=== PATIENT | male | born 1985 | race Caucasian/White ===

== ENCOUNTER 2019-10-08 14:38 | Emergency (ER) | payer BC, SELFPAY ==
[2019-10-08 14:44] VITALS: BP 123/84; PULSE 72; RESP 18; O2SAT 97; BMI 24.3
--- NOTE | 2019-10-08 15:55 | PC.NURSE ---
Patient states he began half pain in his left calf today, called nurse, and was instructed to come to ED to have ultrasound done to assess for clot in leg. Had traveled [address] trip yesterday prior to pain.
--- NOTE | 2019-10-08 16:07 | USCV_ITS ---
Geovanny Cochran Age: 34 Gender: M : 1985 Exam Date: 10/08/2019 16:20 Ordering Phys: Mendez Oakes Technologist: Maria Ines Santana Exam Location: [facility] – [place]_ Indication: PAIN IN CALF HISTORY: Lower extremity pain. Post left leg surgery. PROCEDURES: Examined were the left greater saphenous, common femoral, superficial femoral, profunda, popliteal, posterior tibial veins, and peroneal trunk.. FINDINGS: DVT noted in the LEFT soleal vein and in the LEFT peroneal veins at the calf. All other veins appear free of thrombus at this time. CONCLUSIONS DVT noted in the LEFT soleal vein and in the LEFT peroneal veins at the calf. Remaining veins LLE are patent. Pk Landry MD (Electronically Signed) Final Date: 08 October 2019 17:06 S
--- NOTE | 2019-10-08 16:08 | ED_ITS ---
Documented by User: WILBERTO Jimenez 10/10/19 11:30 HPI - Extremity Problem General: Chief complaint: Extremity Problem,Nontraumatic Stated complaint: left knee pain Time Seen by Provider: 10/08/19 16:04 History of Present Illness: HPI Narrative: Patient is a 34-year-old male comes in the ED with left calf pain. Patient had knee surgery 2 weeks ago. He states that this morning when he woke up he had left calf pain and it didn't go away all day. He denies any trouble breathing or coughing up blood. No history of blood clots. Associated symptoms: Deny chest pain, fever(s) or rash Review of Systems Const: Denies: fever, chills or fatigue Eyes: Denies: change in vision or eye discomfort ENMT: Denies: throat pain, painful swallowing, nasal discharge or nasal congestion Card: Denies: chest pain, palpitations, edema, swelling of feet/ankles, shortness of breath on exertion or shortness of breath when lying down Resp: Denies: shortness of breath, productive cough or non-productive cough GI: Denies: abdominal pain, nausea, vomiting, diarrhea, constipation or blood in stool : Denies: flank pain, difficulty urinating, painful urination or blood in urine Musc: Reports: extremity pain (left calf); Denies: neck pain, back pain or extremity swelling Skin/Breast: Denies: rash or new lesion Neuro: Denies: headache, numbness in extremities or weakness in extremities PFSH ED PFSH: Social History Smoking and tobacco status: never smoked Physical Exam Narrative: EXAM NARRATIVE: pt showing no signs of acute pain or respiratory distress. Const: COMMON NORMALS: oriented x3 HENMT: COMMON NORMALS: normocephalic HEAD & SCALP: normocephalic MOUTH: oral and palatal mucosa normal THROAT: posterior oropharynx normal and uvula midline Neck/C-Spine: COMMON NORMALS: supple GENERAL: Yes normal visual inspection Resp: COMMON NORMALS: normal respiratory effort, no retractions, no use of accessory muscles and clear to auscultation bilaterally AUSCULTATION: clear to auscultation bilaterally Cardio: COMMON NORMALS: regular rate, regular rhythm, S1 normal heart sound, S2 normal heart sound, no gallops, no clicks, no murmurs and peripheral pulses 2+ throughout RATE: regular rate RHYTHM: regular rhythm HEART SOUNDS: S1 normal and S2 normal PERIPHERAL PULSES: pulses 2+ throughout GI: COMMON NORMALS: normal to inspection, nondistended, normoactive bowel sounds, soft to palpation, non-tender and no masses PALPATION: Yes soft : COMMON NORMALS: Yes no CVA tenderness BLADDER/KIDNEY EXAM: Yes no CVA tenderness Back/Pelvis: COMMON NORMALS: no CVA tenderness Extremity: LEFT LOWER EXTREMITY: Yes lower leg (left calf tenderness-no swelling or edemea) Left lower leg: Yes neurovascular exam (intact) Neuro: COMMON NORMALS: oriented x3 and moves all extremities Course Vital Signs: Vital signs: Vital Signs Pulse Rate 58 L 10/08/19 17:21 Respiratory Rate 18 10/08/19 17:21 Blood Pressure 122/67 10/08/19 17:21 Pulse Oximetry 95 10/08/19 17:21 MDM - Extremity (Nontraumatic) MDM Narrative: Medical decision making narrative: pt is a 34 y/o male who comes to the ED with left calf pain 2 weeks after left knee surgery. US Venous duplex of Left LE showed DVT in Soleal and Peroneal vein. Pt was given a shot of heparin in the ED and sent home on a prescription for eliquis. pt was told to follow up with PCP within 5 days to discuss further medication management and treatment length. Pt understood and agreed with plan. Imaging Data^: US Vascular: Attestation: I personally reviewed and interpreted this imaging study as follows: Radiologist's impression: Preliminary report showed a DVT in the left soleal vein in in the left peroneal vein of the calf. Discharge Plan Discharge Patient Disposition: Home, Self-Care Clinical Impression: Deep vein thrombosis of lower extremity Qualifiers: Affected thrombotic vein of extremity: peroneal Chronicity: acute Laterality: left Qualified Code(s): I82.452 - Acute embolism and thrombosis of left peroneal vein Condition: Stable Prescriptions: New Eliquis 5 mg tablet 5 mg PO BID Qty: 20 RF: 0 Discharge Orders: Discharge Order (Routine); Ordered 10/08/19 Ordered By: Mendez Oakes Referrals: Josie Cunningham DO [Primary Care Provider] - Discharge Diet: Regular Discharge Activity: Resume usual activity Patient Instructions: Deep Venous Thrombosis (ED) Activity Restrictions/Additional Instructions: Follow-up with PCP within 5 days for reevaluation and to discuss anticoagulation treatment plan. Take eliquis twice a day. 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 Comprehensive Documented by User: Jessa Pabon MD, [facility] [place] 10/14/19 23:51 HPI - Extremity Problem General: Chief complaint: Extremity Problem,Nontraumatic Stated complaint: left knee pain Time Seen by Provider: 10/08/19 16:04 PFSH ED PFSH: Social History Smoking and tobacco status: never smoked Course Vital Signs: Vital signs: Vital Signs Pulse Rate 58 L 10/08/19 17:21 Respiratory Rate 18 10/08/19 17:21 Blood Pressure 122/67 10/08/19 17:21 Pulse Oximetry 95 10/08/19 17:21 MDM - Extremity (Nontraumatic) MDM Narrative: Medical decision making narrative: Patient with a new onset of DVT. He had initially been sent home on Eliquis 5 mg twice daily. However I contacted the patient following discharge to tell him that he needed to take 10 mg twice a day for 7 days then switch to 5 mg daily. He voiced understanding and is in agreement with the plan. He is advised to return for any concerns. Discharge Plan Discharge Patient Disposition: Home, Self-Care Clinical Impression: Deep vein thrombosis of lower extremity Qualifiers: Affected thrombotic vein of extremity: peroneal Chronicity: acute Laterality: left Qualified Code(s): I82.452 - Acute embolism and thrombosis of left peroneal vein Condition: Stable Prescriptions: New Eliquis 5 mg tablet 5 mg PO BID Qty: 20 RF: 0 Discharge Orders: Discharge Order (Routine); Ordered 10/08/19 Ordered By: Mendez Oakes Referrals: Marisa,Josie L, DO [Primary Care Provider] - Discharge Diet: Regular Discharge Activity: Resume usual activity Patient Instructions: Deep Venous Thrombosis (ED) Activity Restrictions/Additional Instructions: Follow-up with PCP within 5 days for reevaluation and to discuss anticoagulation treatment plan. Take eliquis twice a day. 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
[2019-10-08] MEDS: enoxaparin 80 mg/0.8 mL Syringe SUBCUT (17:17)
[2019-10-08 17:21] VITALS: BP 122/67; PULSE 58; RESP 18; O2SAT 95
== END 2019-10-08 17:21 | disposition home or self-care (01) ==
PROVIDERS: Emergency Provider Physician Assistant; Family Provider Family Medicine; PCP Family Medicine
DX: I82.4Z2 Acute embolism and thrombosis of unspecified deep veins of left distal lower extremity (principal)
CPT/HCPCS: 93971; 96372; 99281; 99283; J1650

== ENCOUNTER 2019-12-30 18:50 | Emergency (ER) | payer OTHER, BC, SELFPAY ==
--- NOTE | 2019-12-30 18:53 | CTR_ITS ---
PROCEDURE INFORMATION: Exam: CT Head Without Contrast Exam date and time: 12/30/2019 6:55 PM Age: 34 years old Clinical indication: Speech disturbance and weakness, extremity and other: Shaking; Left; Additional info: AMS TECHNIQUE: Imaging protocol: Computed tomography of the head without contrast. Radiation optimization: All CT scans at this facility use at least one of these dose optimization techniques: automated exposure control; mA and/or kV adjustment per patient size (includes targeted exams where dose is matched to clinical indication); or iterative reconstruction. Other technique: STROKE PROTOCOL was implemented. COMPARISON: No relevant prior studies available. RADIATION DOSE METRICS: Total DLP: 651.18 mGy-cm FINDINGS: Brain: There is no evidence of infarct, vega-white matter differentiation is preserved. There is no hemorrhage or extra-axial collection. There is no mass. Ventricles: There is no hydrocephalus. Bones/joints: Unremarkable. No acute fracture. Sinuses: There is a small sphenoid sinus retention cyst. No air-fluid levels. Mastoid air cells: Visualized mastoid air cells are well aerated. Soft tissues: Unremarkable. CT/CT head wo con* [id number] IMPRESSION: No intracranial lesion or injury. ASSESSMENT: ASPECTS ([place] Stroke Program Early CT Score) is 10. Radiation Dose CTDIVOL = (mGy): DLP = 651.18 (mGy-cm)
--- NOTE | 2019-12-30 18:53 | XR_ITS ---
WS: [id number] PORTABLE CHEST HISTORY: ams COMPARISON: 03/08/2018 Lungs are clear and well expanded. No pleural effusion or pneumothorax. Cardiac size: Normal. Mediastinum/Aorta: Normal mediastinum. No osseous abnormality seen. XR/XR chest 1V portable [id number] IMPRESSION: Unremarkable portable chest.
--- NOTE | 2019-12-30 18:53 | CTR_ITS ---
PROCEDURE INFORMATION: Exam: CT Angiography Head With Contrast Exam date and time: 12/30/2019 7:00 PM Age: 34 years old Clinical indication: Speech disturbance and weakness and other: Shaking; Additional info: AMS TECHNIQUE: Imaging protocol: Computed tomography angiography of the head with intravenous contrast. 3D rendering: MIP and/or 3D reconstructed images were created by the technologist. Radiation optimization: All CT scans at this facility use at least one of these dose optimization techniques: automated exposure control; mA and/or kV adjustment per patient size (includes targeted exams where dose is matched to clinical indication); or iterative reconstruction. Contrast material: OMNI 350; Contrast volume: 95 ml; Contrast route: IV; COMPARISON: CT head wo con* [id number] 12/30/2019 6:52 PM RADIATION DOSE METRICS: Total DLP: 2081.05 mGy-cm FINDINGS: Anterior cerebral arteries: No occlusion or significant stenosis. No aneurysm. Right internal carotid artery: Intracranial segment is patent with no significant stenosis or occlusion. No aneurysm. Right middle cerebral artery: No occlusion or significant stenosis. No aneurysm. Right posterior cerebral artery: No occlusion or significant stenosis. No aneurysm. Right vertebral artery: No occlusion or significant stenosis. No aneurysm. Left internal carotid artery: Intracranial segment is patent with no significant stenosis or occlusion. No aneurysm. Left middle cerebral artery: No occlusion or significant stenosis. No aneurysm. Left posterior cerebral artery: No occlusion or significant stenosis. No aneurysm. Left vertebral artery: No occlusion or significant stenosis. No aneurysm. Basilar artery: No occlusion or significant stenosis. No aneurysm. IMPRESSION: No intracranial stenosis or occlusion. PROCEDURE INFORMATION: Exam: CT Angiography Neck With Contrast Exam date and time: 12/30/2019 7:00 PM Age: 34 years old Clinical indication: Speech disturbance and weakness and other: Shaking; Additional info: AMS TECHNIQUE: Imaging protocol: Computed tomography angiography of the neck with intravenous contrast. 3D rendering: MIP and/or 3D reconstructed images were created by the technologist. Radiation optimization: All CT scans at this facility use at least one of these dose optimization techniques: automated exposure control; mA and/or kV adjustment per patient size (includes targeted exams where dose is matched to clinical indication); or iterative reconstruction. Contrast material: OMNI 350; Contrast volume: 95 ml; Contrast route: IV; COMPARISON: CT head wo con* [id number] 12/30/2019 6:52 PM RADIATION DOSE METRICS: Total DLP: 1.05 mGy-cm FINDINGS: Right common carotid artery: No stenosis. No dissection or occlusion. Right internal carotid artery: No stenosis of the extracranial segment. No dissection or occlusion. Right external carotid artery: No occlusion or stenosis of the origin. Right vertebral artery: No stenosis. No dissection or occlusion. Left common carotid artery: No stenosis. No dissection or occlusion. Left internal carotid artery: No stenosis of the extracranial segment. No dissection or occlusion. Left external carotid artery: No occlusion or stenosis of the origin. Left vertebral artery: No stenosis. No dissection or occlusion. Thyroid: There is a 6 mm right lobe thyroid nodule. No further imaging required. Bones/joints: No acute fracture. Soft tissues: Normal. No significant soft tissue swelling. CT/CT angio headneck* [id number] IMPRESSION: No carotid or vertebral artery stenosis or dissection. COMMENTS: Consistent with the [employer]'s Incidental Findings Committee white paper (J Am Tenzin Radiol 2015): In patients aged 35 years and older with an incidental thyroid nodule equal to or greater than 1.[address], MRI or extrathyroidal US, further evaluation with dedicated thyroid US is recommended for patients with normal life expectancy and without comorbidities. For smaller nodules without suspicious features, no further evaluation or follow up is recommended. REFERENCES: NASCET CRITERIA. The degree of internal carotid artery stenosis is based on NASCET criteria. Normal is no stenosis. Mild is less than 50% stenosis. Moderate is 50-69% stenosis. Severe is 70% to 99% stenosis. Total occlusion is no detectable patent lumen. Radiation Dose CTDIVOL = (mGy): DLP = 1.05~1.05 (mGy-cm)
[2019-12-30] MEDS: iohexol 350 mg/mL 100 mL Btl IV (19:04)
[2019-12-30 19:24] LABS: Basophils % 0.3 %; Eosinophils % 0.3 %; Hematocrit 39.3 % (42.0-52.0); Hemoglobin 13.2 g/dL (11.7-16.6); Lymphocytes # 1.4 10^3/uL (0.8-4.8); Lymphocytes % 20.1 %; Mean Corpuscular HGB Conc 33.6 g/dL (30.0-36.0); Mean Corpuscular Hemoglobin 30.6 pg (28.0-34.0); Mean Corpuscular Volume 91.2 fL (80-94); Mean Platelet Volume 12.2 fL (7.4-10.4); Monocytes # 0.6 10^3/uL (0.2-0.9); Nucleated Red Blood Cells % 0 %; Platelet Count 145 10^3/cmm (130-400); Red Blood Count 4.31 10^6/uL (4.1-5.3); Red Cell Distribution Width 11.9 % (12.1-15.1); White Blood Count 7.1 10^3/uL (4.0-10.0)
[2019-12-30 19:36] LABS: INR 1.17 (0.8-1.2)
[2019-12-30 19:44] LABS: Alanine Aminotransferase 17 U/L (0-41); Albumin Level 4.3 g/dL (3.5-5.2); Alkaline Phosphatase 54 IU/L (40-130); Anion Gap 15.9 (5-19); Aspartate Amino Transferase 19 U/L (0-40); Blood Urea Nitrogen 29 mg/dL (6-20); Calcium 8.5 mg/dL (8.5-10.5); Carbon Dioxide 24 mmol/L (22-29); Chloride 94 mmol/L (98-107); Globulin 1.4 g/dL (1.3-4.6); Glomerular Filtration Rate 57.3 mL/min (90-130); Glucose 139 mg/dL (65-115); Osmolality Calculated 269 mOsm/kg (285-295); Potassium 3.9 mmol/L (3.5-5.1); Sodium 130 mmol/L (136-145); Total Bilirubin 0.2 mg/dL (0.15-1.2); Total Protein 5.7 g/dL (6.6-8.7)
[2019-12-30 19:45] LABS: Acetaminophen < 5.0 ug/mL (10-30); Alcohol Level < 10 mg/dL (0-10); Salicylate < 0.3 mg/dL (3-10)
--- NOTE | 2019-12-30 19:45 | W.ED.AMS ---
HPI - Altered Mental Status General: Stated Complaint: poss stroke Time Seen by Provider: 12/30/19 18:53 History of Present Illness: HPI narrative: Mr. Cochran is a pleasant 34-year-old male who comes in as a stroke alert as his family found him to have difficulty speaking and was confused. As time has elapsed the patient has arrived here gone to CT and is now talking some. Nursing and cardiovascular radiologic technologist tell us that his mental status is improved even during their time with him. Mr. Cochran explains to me that he took a piece of candy from his boss at work who told him it would make him feel very good. Patient thinks he took this sometime between 430 and 445. He admits now that probably 30 minutes after taking this he began to feel odd and is somewhat confused about to events until just recently. Review of Systems General: Reports: other (negative unless marked) Const: Denies: fever, chills, body aches, fatigue, malaise or diaphoresis Eyes: Denies: change in vision or blurry vision ENMT: Denies: throat pain, painful swallowing, hoarseness, ear pain, ear discharge, Change in hearing or nasal discharge Card: Denies: chest pain, palpitations, irregular heart rhythm, syncope, pre-syncope, shortness of breath on exertion or shortness of breath when lying down Resp: Denies: shortness of breath, productive cough, non-productive cough, wheezing, coughing up blood or chest congestion GI: Denies: abdominal pain, nausea, vomiting, vomiting blood, coffee grounds in vomit, diarrhea, constipation, cramping, blood in stool or black tarry stool : Denies: flank pain, difficulty urinating, painful urination, urinary frequency, urinary urgency, decreased urine ouput, urinary incontinence or blood in urine Musc: Denies: neck pain, back pain, extremity pain, extremity swelling, joint pain, joint swelling, joint warmth or joint stiffness Skin/Breast: Denies: rash, skin tenderness or yellow skin Neuro: Reports: confusion; Denies: headache, numbness in extremities, weakness in extremities, changes in sensation, lack of coordination, difficulty walking, dizziness or vertigo Endo: Denies: excessive thirst, tired all the time, cold intolerance, excessive sweating, flushing or hot flashes Kendall/Lymph: Denies: easy bruising, easy bleeding, petechiae or enlarged lymph nodes All/Imm: Denies: hives, throat swelling, tongue swelling, facial swelling or acute wheezing PFSH ED PFSH: Medical History (Updated 12/30/19 @ 22:06 by Juliet Lentz) DVT (deep venous thrombosis) Social History Smoking and tobacco status: never smoked Physical Exam Const: COMMON NORMALS: no apparent distress, oriented x3, no limitations, healthy appearing and well nourished EXAM LIMITATIONS: no altered mental status GENERAL APPEARANCE: cooperative, well kempt and well developed ORIENTATION/CONSCIOUSNESS: Yes awake HENMT: COMMON NORMALS: normocephalic, head/scalp atraumatic, hearing grossly normal bilaterally, external ears normal, EAC's normal, external nose normal and moist oral mucous membranes HEAD & SCALP: normal to inspection, normocephalic and atraumatic FACE & SINUS: normal facial exam and face symmetric NOSE: external nose normal and nares normal EXTERNAL EAR: Yes external ears normal EXTERNAL AUDITORY CANAL: EAC's normal MOUTH: oral and palatal mucosa normal and tongue normal Eye: COMMON NORMALS: PERRL, EOMs intact bilaterally, conjunctivae normal and no scleral icterus GENERAL EYE: normal appearance of both eyes and normal light reflex CONJUNCTIVA: Yes conjunctivae normal SCLERA: sclerae normal CORNEA: Yes corneas normal PUPIL: Yes PERRL DIRECT OPHTHALMOSCOPY: Yes normal light reflex Neck/C-Spine: COMMON NORMALS: full ROM, no lymphadenopathy, supple, no meningeal signs and no JVD GENERAL: Yes normal visual inspection and Yes trachea midline CERVICAL SPINE: Yes cervical ROM normal Chest: COMMONS NORMALS: inspection of chest normal and palpation of chest normal Resp: COMMON NORMALS: normal respiratory effort, no retractions, no use of accessory muscles and clear to auscultation bilaterally EFFORT & INSPECTION: Yes able to speak in complete sentences AUSCULTATION: clear to auscultation bilaterally Cardio: COMMON NORMALS: no JVD, regular rate, regular rhythm, S1 normal heart sound, S2 normal heart sound, no gallops, no clicks, no murmurs and no rub JUGULAR VENOUS DISTENTION: no JVD RATE: regular rate RHYTHM: regular rhythm HEART SOUNDS: S1 normal and S2 normal GI: COMMON NORMALS: soft to palpation, non-tender, no hepatosplenomegaly and no masses INSPECTION: Yes normal to inspection PALPATION: Yes soft and Yes no hepatosplenomegaly : COMMON NORMALS: Yes no CVA tenderness BLADDER/KIDNEY EXAM: Yes no CVA tenderness Back/Pelvis: COMMON NORMALS: no CVA tenderness, thoracic and lumbar spine normal to inspection, no thoracic nor lumbar tenderness and thoraco-lumbar ROM normal Extremity: COMMON NORMALS: normal to inspection, full ROM, normal capillary refill, no joint enlargement, no clubbing, cyanosis or edema and no calf tenderness Neuro: COMMON NORMALS: oriented x3, CN's II-XII intact bilaterally, moves all extremities, no focal motor deficits and no sensory deficits noted MENINGEAL SIGNS: Yes no meningeal signs Psych: APPEARANCE: Yes well kempt Skin: COMMON NORMALS: no rashes or lesions noted, skin turgor normal, no jaundice, no petechiae and no mottling GENERAL SKIN EXAM: no rashes or lesions noted and turgor normal Course ED course: 1999 -the patient feels like he is back to normal. He shows no sign of difficulty speaking, no abnormal neurologic function and no sign of toxidrome. His CTs and lab work are unremarkable. I have discussed with him I like to watch him for a while longer just to be certain there is nothing else that may have been in this medication that he ingested. Patient has been able to ambulate to and from the bathroom without any difficulty. MDM - Altered Mental Status MDM Narrative: Medical decision making narrative: 2203 - Mr. Cochran is a nice 34-year-old male who comes in after he take a piece of candy from his boss or 1 of his coworkers. He states he began to fade out from there and then had trouble speaking and was tremulous. Here his symptoms have completely resolved but he seems to be caught up and trying to figure out what he may have taken. I reviewed the case with poison control who states that the patient is back to normal and has stable vital signs he can be discharged. I will watch the patient a total of 4 hours here in the ER but this should be according to him well over 6 hours since time of ingestion. I believe he is safe at this time and he wants to go home. I will reexamine him at that 4-hour cooper and if his symptoms of not changed and he is feeling good I will discharge him home with his . 2249 -the patient is able to ambulate without any difficulty. He is not confused, his vital signs are stable he shows no sign of any toxidrome. He would like to go home and I have discussed what to look out for with his . I did review the case with poison control and they had no formal recommendations but felt the patient could be discharged if his vital signs are stable and he was back to baseline. He and his do agree to return should her symptoms change or worsen but this time he is feeling good and would like to go home. Lab Data: Attestation: I reviewed the patient's lab results. Labs: Lab Results 12/30/19 12/30/19 12/30/19 Range/Units 19:13 19:13 19:13 WBC 7.1 (4.0-10.0) 10^3/ uL RBC 4.31 (4.1-5.3) 10^6/u L Hgb 13.2 (11.7-16.6) g/dL Hct 39.3 L (42.0-52.0) % MCV 91.2 (80-94) fL MCH 30.6 (28.0-34.0) pg MCHC 33.6 (30.0-36.0) g/dL RDW 11.9 L (12.1-15.1) % Plt Count 145 (130-400) 10^3/c mm MPV 12.2 H (7.4-10.4) fL Neut % (Auto) 71.0 % Lymph % (Auto) 20.1 % Erath % (Auto) 8.0 % Eos % (Auto) 0.3 % Baso % (Auto) 0.3 % Neut # (Auto) 5.0 (1.8-7.7) 10^3/u L Lymph # (Auto) 1.4 (0.8-4.8) 10^3/u L Erath # (Auto) 0.6 (0.2-0.9) 10^3/u L Eos # (Auto) 0.0 (0.0-0.8) 10^3/u L Baso # (Auto) 0.0 (0.0-0.1) 10^3/u L Nucleated RBC % (a uto) 0 % Nucleated RBCs # 0.0 /100WBC PT 15.20 H (10.5-13.3) SECO NDS INR 1.17 (0.8-1.2) Sodium 130 L (136-145) mmol/L Potassium 3.9 (3.5-5.1) mmol/L Chloride 94 L (98-107) mmol/L Carbon Dioxide 24 (22-29) mmol/L Anion Gap 15.9 (5-19) BUN 29 H (6-20) mg/dL Creatinine 1.4 H (0.7-1.2) mg/dL GFR Calculation 57.3 L (90-130) mL/min Glucose 139 H (65-115) mg/dL Calculated Osmolal ity 269 L (285-295) mOsm/k g Calcium 8.5 (8.5-10.5) mg/dL Total Bilirubin 0.2 (0.15-1.2) mg/dL AST 19 (0-40) U/L ALT 17 (0-41) U/L Alkaline Phosphata se 54 (40-130) IU/L Total Protein 5.7 L (6.6-8.7) g/dL Albumin 4.3 (3.5-5.2) g/dL Globulin 1.4 (1.3-4.6) g/dL Salicylates < 0.3 L (3-10) mg/dL Urine Opiates Scre en (Negative) ng/mL Acetaminophen < 5.0 L (10-30) ug/mL Ur Barbiturates Sc reen (Negative) ng/mL Ur Phencyclidine S crn (Negative) ng/mL Ur Amphetamines Sc reen (Negative) ng/mL U Benzodiazepines Scrn (Negative) ng/mL Urine Cocaine Scre en (Negative) ng/mL U Marijuana (THC) Screen (Negative) ng/mL Ethyl Alcohol < 10 (0-10) mg/dL 12/30/19 Range/Units 19:32 WBC (4.0-10.0) 10^3/ uL RBC (4.1-5.3) 10^6/u L Hgb (11.7-16.6) g/dL Hct (42.0-52.0) % MCV (80-94) fL MCH (28.0-34.0) pg MCHC (30.0-36.0) g/dL RDW (12.1-15.1) % Plt Count (130-400) 10^3/c mm MPV (7.4-10.4) fL Neut % (Auto) % Lymph % (Auto) % Erath % (Auto) % Eos % (Auto) % Baso % (Auto) % Neut # (Auto) (1.8-7.7) 10^3/u L Lymph # (Auto) (0.8-4.8) 10^3/u L Erath # (Auto) (0.2-0.9) 10^3/u L Eos # (Auto) (0.0-0.8) 10^3/u L Baso # (Auto) (0.0-0.1) 10^3/u L Nucleated RBC % (a uto) % Nucleated RBCs # /100WBC PT (10.5-13.3) SECO NDS INR (0.8-1.2) Sodium (136-145) mmol/L Potassium (3.5-5.1) mmol/L Chloride (98-107) mmol/L Carbon Dioxide (22-29) mmol/L Anion Gap (5-19) BUN (6-20) mg/dL Creatinine (0.7-1.2) mg/dL GFR Calculation (90-130) mL/min Glucose (65-115) mg/dL Calculated Osmolal ity (285-295) mOsm/k g Calcium (8.5-10.5) mg/dL Total Bilirubin (0.15-1.2) mg/dL AST (0-40) U/L ALT (0-41) U/L Alkaline Phosphata se (40-130) IU/L Total Protein (6.6-8.7) g/dL Albumin (3.5-5.2) g/dL Globulin (1.3-4.6) g/dL Salicylates (3-10) mg/dL Urine Opiates Scre en Negative (Negative) ng/mL Acetaminophen (10-30) ug/mL Ur Barbiturates Sc reen Negative (Negative) ng/mL Ur Phencyclidine S crn Negative (Negative) ng/mL Ur Amphetamines Sc reen Negative (Negative) ng/mL U Benzodiazepines Scrn Negative (Negative) ng/mL Urine Cocaine Scre en Negative (Negative) ng/mL U Marijuana (THC) Screen Positive H (Negative) ng/mL Ethyl Alcohol (0-10) mg/dL Imaging Data^: CT Head: Radiologist's impression: [address] [address] [address] Scan Report Signed Patient: Geovanny Cochran Unit #: [id number] : 1985 Age/Sex: 34 / M ADM Date: 12/30/19 Loc: ER Room/Bed: Attending Dr: Ordering Provider/Ordering MD: Christin Pink MD Date of Service: 12/30/19 Procedure(s): CT head wo con* [id number] Accession Number(s): [id number] Report Number: [id number] PROCEDURE INFORMATION: Exam: CT Head Without Contrast Exam date and time: 12/30/2019 6:55 PM Age: 34 years old Clinical indication: Speech disturbance and weakness, extremity and other: Shaking; Left; Additional info: AMS TECHNIQUE: Imaging protocol: Computed tomography of the head without contrast. Radiation optimization: All CT scans at this facility use at least one of these dose optimization techniques: automated exposure control; mA and/or kV adjustment per patient size (includes targeted exams where dose is matched to clinical indication); or iterative reconstruction. Other technique: STROKE PROTOCOL was implemented. COMPARISON: No relevant prior studies available. RADIATION DOSE METRICS: Total DLP: 651.18 mGy-cm FINDINGS: Brain: There is no evidence of infarct, vega-white matter differentiation is preserved. There is no hemorrhage or extra-axial collection. There is no mass. Ventricles: There is no hydrocephalus. Bones/joints: Unremarkable. No acute fracture. Sinuses: There is a small sphenoid sinus retention cyst. No air-fluid levels. Mastoid air cells: Visualized mastoid air cells are well aerated. Soft tissues: Unremarkable. CT/CT head wo con* [id number] IMPRESSION: No intracranial lesion or injury. ASSESSMENT: ASPECTS ([place] Stroke Program Early CT Score) is 10. Radiation Dose CTDIVOL = (mGy): DLP = 651.18 (mGy-cm) Dictated By: Dex Calhoun MD Signed By: Dex Calhoun MD Signed Date/Time: 12/30/191913 DD/ 12 CTA Head and Neck: Radiologist's impression: [facility] [address] [place] [address] CT Scan Report Signed Patient: Geovanny Cochran Unit #: [id number] : 1985 Age/Sex: 34 / M ADM Date: 12/30/19 Loc: ER Room/Bed: Attending Dr: Ordering Provider/Ordering MD: Christin Pink MD Date of Service: 12/30/19 Procedure(s): CT angio headneck* [id number] Accession Number(s): [id number] Report Number: [id number] PROCEDURE INFORMATION: Exam: CT Angiography Head With Contrast Exam date and time: 12/30/2019 7:00 PM Age: 34 years old Clinical indication: Speech disturbance and weakness and other: Shaking; Additional info: AMS TECHNIQUE: Imaging protocol: Computed tomography angiography of the head with intravenous contrast. 3D rendering: MIP and/or 3D reconstructed images were created by the technologist. Radiation optimization: All CT scans at this facility use at least one of these dose optimization techniques: automated exposure control; mA and/or kV adjustment per patient size (includes targeted exams where dose is matched to clinical indication); or iterative reconstruction. Contrast material: OMNI 350; Contrast volume: 95 ml; Contrast route: IV; COMPARISON: CT head wo con* [id number] 12/30/2019 6:52 PM RADIATION DOSE METRICS: Total DLP: 2081.05 mGy-cm FINDINGS: Anterior cerebral arteries: No occlusion or significant stenosis. No aneurysm. Right internal carotid artery: Intracranial segment is patent with no significant stenosis or occlusion. No aneurysm. Right middle cerebral artery: No occlusion or significant stenosis. No aneurysm. Right posterior cerebral artery: No occlusion or significant stenosis. No aneurysm. Right vertebral artery: No occlusion or significant stenosis. No aneurysm. Left internal carotid artery: Intracranial segment is patent with no significant stenosis or occlusion. No aneurysm. Left middle cerebral artery: No occlusion or significant stenosis. No aneurysm. Left posterior cerebral artery: No occlusion or significant stenosis. No aneurysm. Left vertebral artery: No occlusion or significant stenosis. No aneurysm. Basilar artery: No occlusion or significant stenosis. No aneurysm. IMPRESSION: No intracranial stenosis or occlusion. PROCEDURE INFORMATION: Exam: CT Angiography Neck With Contrast Exam date and time: 12/30/2019 7:00 PM Age: 34 years old Clinical indication: Speech disturbance and weakness and other: Shaking; Additional info: AMS TECHNIQUE: Imaging protocol: Computed tomography angiography of the neck with intravenous contrast. 3D rendering: MIP and/or 3D reconstructed images were created by the technologist. Radiation optimization: All CT scans at this facility use at least one of these dose optimization techniques: automated exposure control; mA and/or kV adjustment per patient size (includes targeted exams where dose is matched to clinical indication); or iterative reconstruction. Contrast material: OMNI 350; Contrast volume: 95 ml; Contrast route: IV; COMPARISON: CT head wo con* [id number] 12/30/2019 6:52 PM RADIATION DOSE METRICS: Total DLP: 2081.05 mGy-cm FINDINGS: Right common carotid artery: No stenosis. No dissection or occlusion. Right internal carotid artery: No stenosis of the extracranial segment. No dissection or occlusion. Right external carotid artery: No occlusion or stenosis of the origin. Right vertebral artery: No stenosis. No dissection or occlusion. Left common carotid artery: No stenosis. No dissection or occlusion. Left internal carotid artery: No stenosis of the extracranial segment. No dissection or occlusion. Left external carotid artery: No occlusion or stenosis of the origin. Left vertebral artery: No stenosis. No dissection or occlusion. Thyroid: There is a 6 mm right lobe thyroid nodule. No further imaging required. Bones/joints: No acute fracture. Soft tissues: Normal. No significant soft tissue swelling. CT/CT angio headneck* [id number] IMPRESSION: No carotid or vertebral artery stenosis or dissection. COMMENTS: Consistent with the [place] [employer]'s Incidental Findings Committee white paper (J Am Tenzin Radiol 2015): In patients aged 35 years and older with an incidental thyroid nodule equal to or greater than 1.[address], MRI or extrathyroidal US, further evaluation with dedicated thyroid US is recommended for patients with normal life expectancy and without comorbidities. For smaller nodules without suspicious features, no further evaluation or follow up is recommended. REFERENCES: NASCET CRITERIA. The degree of internal carotid artery stenosis is based on NASCET criteria. Normal is no stenosis. Mild is less than 50% stenosis. Moderate is 50-69% stenosis. Severe is 70% to 99% stenosis. Total occlusion is no detectable patent lumen. Radiation Dose CTDIVOL = (mGy): DLP = 2081.05 1.05 (mGy-cm) Dictated By: Dex Calhoun MD Signed By: Dex Calhoun MD Signed Date/Time: 12/30/191921 DD/ 20 Discharge Plan Discharge Patient Disposition: Home, Self-Care Clinical Impression: Adverse reaction to drug Qualifiers: Encounter type: initial encounter Qualified Code(s): T50.905A - Adverse effect of unspecified drugs, medicaments and biological substances, initial encounter Condition: Stable Prescriptions: No Action Eliquis 5 mg tablet 5 mg PO BID Qty: 20 RF: 0 Discharge Orders: Discharge Order (Routine); Ordered 12/30/19 Ordered By: Juliet Lentz Referrals: Josie Cunningham DO [Primary Care Provider] - 1-3 days Discharge Diet: Advance as tolerated Discharge Activity: Increase activity as tolerated Patient Instructions: Adverse Drug Reaction (ED) Activity Restrictions/Additional Instructions: Please return to the ER immediately for any of the signs or symptoms listed on your discharge instruction sheets, worsening/changing of your symptoms, you are not getting better as quickly as expected, or for ANY other cause or concerns. Return to the ER if you develop any additional symptoms such as headache, confusion, fever, vomiting, change in your mental status, or for any other cause for concern. 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
[2019-12-30 20:06] LABS: Amphetamines Screen Urine Negative (Negative); Barbiturates Screen Urine Negative (Negative); Benzodiazepines Screen Urine Negative (Negative); Cocaine Screen Urine Negative (Negative); Opiate Screen Urine Negative (Negative); PCP Screen Urine Negative (Negative); THC Screen Urine Positive (Negative)
[2019-12-30 23:50] VITALS: BP 106/69; PULSE 96; RESP 16; O2SAT 98
== END 2019-12-30 23:52 | disposition home or self-care (01) ==
PROVIDERS: Emergency Medicine; Emergency Provider Emergency Medicine; PCP Family Medicine
DX: T88.7XXA Unspecified adverse effect of drug or medicament, initial encounter (principal); T50.905A Adverse effect of unspecified drugs, medicaments and biological substances, initial encounter; Z79.01 Long term (current) use of anticoagulants
CPT/HCPCS: 12345; 70450; 70496; 70498; 71045; 80053; 80306; 80307; 85025; 85610; 96360; 96361; 99282; 99284; Q9967

== ENCOUNTER 2020-03-09 08:21 | Observation (INO) | payer BC, SELFPAY ==
[2020-03-09] VITALS (25 sets, daily range): BP systolic 105–137; BP diastolic 65–95; PULSE 40–77; RESP 16–65; TEMP 36.3–37.2; O2SAT 95–100; BMI 25.0
--- NOTE | 2020-03-09 08:32 | CT_ITS ---
WS: [id number] CT ABDOMEN AND PELVIS WITH CONTRAST HISTORY: pain TECHNIQUE: Imaging performed of the abdomen and pelvis with IV contrast. Single phase imaging of the abdomen. Coronal and sagittal reformats are submitted. All CT scans at [facility] use at least one of these dose optimization techniques: automated exposure control; mA and/or kV adjustment per patient size (includes targeted exams where dose is matched to clinical indication); or iterativ e reconstruction. IV CONTRAST: Omnipaque 300; 95 mL IV. Oral contrast: No DLP: 874.23 mGy.cm COMPARISON: 03/08/2018 Lower thorax: Lung bases are clear. Heart is normal size. No hiatal hernia. Liver/biliary system: Normal size liver. Stable cyst in the superior RIGHT lobe. No bile duct dilatat ion. Gallbladder: Normal. No gallstones or wall thickening. No pericholecystic fluid. Pancreas: Normal. Spleen: Normal. Adrenal glands: Normal. Right kidney: Normal. Left kidney: Normal. Aorta: Normal. Lymphadenopathy: None. Free fluid: None. GI tract: No GI tract obstruction. There is moderate fecal retention and constipation. The appendix i s dilated and mildly hyperemic with periappendiceal inflammation. The appendix measures 8.2 mm in pranay meter. Numerous diverticula in the sigmoid region. There is a partially calcified nodule measuring 1. 5 cm in the RIGHT perirectal fat. May be related to diverticular disease. No acute inflammation. Abdominal wall: Small fat-containing umbilical hernia. Pelvis: Normal urinary bladder. Bones: No osteoblastic or osteolytic bone disease. Notified CHRISTINE Emanuel at 03/09/2020 9:[address]/CT abdomen pelvis w con* [id number] IMPRESSION: 1. Acute appendicitis without rupture. 2. Moderate constipation and sigmoid diverticulosis.
--- NOTE | 2020-03-09 08:33 | W.ED.ABDPA2 ---
HPI - Abdominal Pain General: Chief Complaint: Abdominal Pain Stated Complaint: abd pain Time Seen by Provider: 03/09/20 08:24 History of Present Illness: HPI narrative: Patient states last night that afternoon his talks about 2 hours later he started developing some pain in his right lower abdomen had some gas and the pain is not relented since he said he felt a little bit feverish just did not feel good. Denies any vomiting does feel nauseous MD elicited complaint: abdominal pain Onset (ago): hour(s) Pain Consistency: constant Location: RLQ Severity: moderate Quality: cramping and fullness Radiation: none Migration to: no migration Exacerbating factors: nothing Relieving factors: nothing Associated Symptoms: Reports bloating and nausea; Denies chills and fever(s) Review of Systems Const: Denies: fever(s), chills or body aches Eyes: Denies: change in vision or blurry vision ENMT: Denies: throat pain or nasal congestion Card: Denies: chest pain or dyspnea on exertion Resp: Denies: dyspnea, productive cough or non-productive cough GI: Reports: abdominal pain, nausea and bloating : Denies: difficulty urinating Musc: Denies: extremity pain Skin/Breast: Denies: rash Neuro: Denies: headache(s) Psych: Denies: anxiety or depression Kendall/Lymph: Denies: easy bruising PFSH ED PFSH: Medical History DVT (deep venous thrombosis) Pneumonia Soft tissue mass Surgical History H/O: vasectomy History of right knee surgery Hx of tonsillectomy Social History Smoking and tobacco status: never smoked Physical Exam Const: COMMON NORMALS: no acute distress, average body habitus and patient oriented x3 HENMT: COMMON NORMALS: normocephalic HEAD & SCALP: normal to inspection and normocephalic FACE & SINUS: normal facial exam Eye: COMMON NORMALS: conjunctivae normal GENERAL EYE: appearance normal, both eyes and all related structures CONJUNCTIVA: Yes conjunctivae normal Neck/C-Spine: COMMON NORMALS: no JVD Chest: COMMONS NORMALS: normal inspection of the chest Resp: COMMON NORMALS: normal respiratory effort and clear to auscultation bilaterally AUSCULTATION: clear to auscultation bilaterally Cardio: COMMON NORMALS: no JVD, regular rate and regular rhythm RATE: regular rate RHYTHM: regular rhythm GI: COMMON NORMALS: Normal to inspection, nondistended, normoactive bowel sounds present PALPATION: Yes Tenderness to palpation present (GI) Details: RLQ Extremity: COMMON NORMALS: normal to inspection and full ROM Neuro: COMMON NORMALS: patient oriented x3 Course Vital Signs: Vital signs: Vital Signs Temperature 98.3 F 03/09/20 10:33 Pulse Rate 60 03/09/20 10:33 Respiratory Rate 18 03/09/20 11:03 Blood Pressure 122/69 03/09/20 10:33 Pulse Oximetry 97 03/09/20 11:03 MDM - Abdominal Pain MDM Narrative: Medical decision making narrative: Spoke with Dr. Proctor at 0 950 this morning patient will go through outpatient surgery for appendicitis Lab Data: Labs: Lab Results 03/09/20 03/09/20 03/09/20 Range/Units 08:40 08:40 08:40 WBC 11.3 H (4.0-10.0) 10^3/ uL RBC 4.64 (4.1-5.3) 10^6/u L Hgb 14.0 (11.7-16.6) g/dL Hct 42.3 (42.0-52.0) % MCV 91.2 (80-94) fL MCH 30.2 (28.0-34.0) pg MCHC 33.1 (30.0-36.0) g/dL RDW 11.9 L (12.1-15.1) % Plt Count 143 (130-400) 10^3/c mm MPV 12.4 H (7.4-10.4) fL Neut % (Auto) 78.2 % Lymph % (Auto) 12.4 % [place] % (Auto) 8.4 % Eos % (Auto) 0.6 % Baso % (Auto) 0.2 % Neut # (Auto) 8.86 H (1.8-7.7) 10^3/u L Lymph # (Auto) 1.4 (0.8-4.8) 10^3/u L [place] # (Auto) 1.0 H (0.2-0.9) 10^3/u L Eos # (Auto) 0.1 (0.0-0.8) 10^3/u L Baso # (Auto) 0.0 (0.0-0.1) 10^3/u L Nucleated RBC % (a uto) 0 % Nucleated RBCs # 0.0 /100WBC PT 12.80 (10.5-13.3) SECO NDS INR 0.94 (0.8-1.2) Sodium 137 (136-145) mmol/L Potassium 4.2 (3.5-5.1) mmol/L Chloride 103 (98-107) mmol/L Carbon Dioxide 25 (22-29) mmol/L Anion Gap 13.2 (5-19) BUN 26 H (6-20) mg/dL Creatinine 0.9 (0.7-1.2) mg/dL GFR Calculation 95.5 (90-130) mL/min Glucose 104 (65-115) mg/dL Calculated Osmolal ity 281 L (285-295) mOsm/k g Calcium 9.1 (8.5-10.5) mg/dL Total Bilirubin 0.4 (0.15-1.2) mg/dL AST 18 (0-40) U/L ALT 15 (0-41) U/L Alkaline Phosphata se 64 (40-130) IU/L Total Protein 6.6 (6.6-8.7) g/dL Albumin 4.5 (3.5-5.2) g/dL Globulin 2.1 (1.3-4.6) g/dL Lipase 20 (13-60) U/L Urine Color (Yellow) Urine Appearance (CLEAR) Urine pH (5-7) Ur Specific Gravit y (1.005-1.030) Urine Protein (Negative) Urine Glucose (UA) (Normal) Urine Ketones (Negative) Urine Blood (Negative) Urine Nitrate (Negative) Urine Bilirubin (NEGATIVE) Urine Urobilinogen (Negative) mg/dL Ur Leukocyte Renetta ase (Negative) Urine RBC (0-2) /hpf Urine WBC (0-5) /hpf Ur Squamous Epith Cells (0-5) Amorphous Sediment Urine Bacteria (NONE) 03/09/20 Range/Units 09:26 WBC (4.0-10.0) 10^3/ uL RBC (4.1-5.3) 10^6/u L Hgb (11.7-16.6) g/dL Hct (42.0-52.0) % MCV (80-94) fL MCH (28.0-34.0) pg MCHC (30.0-36.0) g/dL RDW (12.1-15.1) % Plt Count (130-400) 10^3/c mm MPV (7.4-10.4) fL Neut % (Auto) % Lymph % (Auto) % [place] % (Auto) % Eos % (Auto) % Baso % (Auto) % Neut # (Auto) (1.8-7.7) 10^3/u L Lymph # (Auto) (0.8-4.8) 10^3/u L [place] # (Auto) (0.2-0.9) 10^3/u L Eos # (Auto) (0.0-0.8) 10^3/u L Baso # (Auto) (0.0-0.1) 10^3/u L Nucleated RBC % (a uto) % Nucleated RBCs # /100WBC PT (10.5-13.3) SECO NDS INR (0.8-1.2) Sodium (136-145) mmol/L Potassium (3.5-5.1) mmol/L Chloride (98-107) mmol/L Carbon Dioxide (22-29) mmol/L Anion Gap (5-19) BUN (6-20) mg/dL Creatinine (0.7-1.2) mg/dL GFR Calculation (90-130) mL/min Glucose (65-115) mg/dL Calculated Osmolal ity (285-295) mOsm/k g Calcium (8.5-10.5) mg/dL Total Bilirubin (0.15-1.2) mg/dL AST (0-40) U/L ALT (0-41) U/L Alkaline Phosphata se (40-130) IU/L Total Protein (6.6-8.7) g/dL Albumin (3.5-5.2) g/dL Globulin (1.3-4.6) g/dL Lipase (13-60) U/L Urine Color Straw (Yellow) Urine Appearance Clear (CLEAR) Urine pH 5 (5-7) Ur Specific Gravit y 1.005 (1.005-1.030) Urine Protein Neg (Negative) Urine Glucose (UA) Norm (Normal) Urine Ketones Negative (Negative) Urine Blood Trace H (Negative) Urine Nitrate Negative (Negative) Urine Bilirubin Neg (NEGATIVE) Urine Urobilinogen Norm (Negative) mg/dL Ur Leukocyte Renetta ase Negative (Negative) Urine RBC 0-4 H (0-2) /hpf Urine WBC None (0-5) /hpf Ur Squamous Epith Cells None (0-5) Amorphous Sediment Not Reportable Urine Bacteria None (NONE) Discharge Plan Discharge Patient Disposition: Xfer Other Clinical Impression: Appendicitis Condition: Stable Discharge Date/Time: 03/09/20 10:15 Coding Level of Care Code ED 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
[2020-03-09] MEDS: sodium chloride 0.9% 1,000 ML 999 ML IV (08:47)
[2020-03-09] MEDS: ondansetron 2 mg/ML SDV 2 mL 4 MG IVP (08:49)
[2020-03-09] MEDS: ketorolac 30 mg/mL INJ IVP (08:51)
[2020-03-09 09:02] LABS: Basophils % 0.2 %; Eosinophils # 0.1 10^3/uL (0.0-0.8); Eosinophils % 0.6 %; Hematocrit 42.3 % (42.0-52.0); Lymphocytes # 1.4 10^3/uL (0.8-4.8); Lymphocytes % 12.4 %; Mean Corpuscular HGB Conc 33.1 g/dL (30.0-36.0); Mean Corpuscular Hemoglobin 30.2 pg (28.0-34.0); Mean Corpuscular Volume 91.2 fL (80-94); Mean Platelet Volume 12.4 fL (7.4-10.4); Monocytes % 8.4 %; Neutrophils # 8.86 10^3/uL (1.8-7.7); Neutrophils % 78.2 %; Nucleated Red Blood Cells % 0 %; Platelet Count 143 10^3/cmm (130-400); Red Blood Count 4.64 10^6/uL (4.1-5.3); Red Cell Distribution Width 11.9 % (12.1-15.1); White Blood Count 11.3 10^3/uL (4.0-10.0)
[2020-03-09 09:18] LABS: Alanine Aminotransferase 15 U/L (0-41); Albumin Level 4.5 g/dL (3.5-5.2); Alkaline Phosphatase 64 IU/L (40-130); Blood Urea Nitrogen 26 mg/dL (6-20); Calcium 9.1 mg/dL (8.5-10.5); Carbon Dioxide 25 mmol/L (22-29); Chloride 103 mmol/L (98-107); Globulin 2.1 g/dL (1.3-4.6); Glomerular Filtration Rate 95.5 mL/min (90-130); Glucose 104 mg/dL (65-115); Lipase 20 U/L (13-60); Osmolality Calculated 281 mOsm/kg (285-295); Sodium 137 mmol/L (136-145); Total Bilirubin 0.4 mg/dL (0.15-1.2); Total Protein 6.6 g/dL (6.6-8.7)
[2020-03-09 09:28] LABS: Anion Gap 13.2 (5-19); Aspartate Amino Transferase 18 U/L (0-40); Potassium 4.2 mmol/L (3.5-5.1)
[2020-03-09] MEDS: iohexol 300 mg/mL 100 mL Btl IV (09:30)
[2020-03-09] MEDS: morphine 4 mg/mL SDV 1 mL IVP (09:42)
--- NOTE | 2020-03-09 09:45 | PM.HP ---
Providers/Chief Complaint Admitting Physician: Alfredito Proctor MD Primary Care Provider: Josie Cunningham DO Chief Complaint: abd pain History of Present Illness Chief Complaint: My tummy hurts History of present illness: Mr Geovanny Cochran is a 34 year old male presented to the emergency department with worsening abdominal pain that started yesterday evening in the center of the abdomen and then started shifting slowly to the right lower quadrant, nothing seems to make it better yet as it got worse came to the ER for further evaluation, pain is associated with nausea but no vomiting and no dysuria or diarrhea, was found to have elevated WBC count and a CT scan that showed acute appendicitis without perforation. Patient reports that he had a previous left knee surgery few months ago and developed a DVT that required to be on blood thinner for 3 months and currently he is off that. CT scan of the abdomen and pelvis showed Lower thorax: Lung bases are clear. Heart is normal size. No hiatal hernia. Liver/biliary system: Normal size liver. Stable cyst in the superior RIGHT lobe. No bile duct dilatation. Gallbladder: Normal. No gallstones or wall thickening. No pericholecystic fluid. Pancreas: Normal. Spleen: Normal. Adrenal glands: Normal. Right kidney: Normal. Left kidney: Normal. Aorta: Normal. Lymphadenopathy: None. Free fluid: None. GI tract: No GI tract obstruction. There is moderate fecal retention and constipation. The appendix is dilated and mildly hyperemic with periappendiceal inflammation. The appendix measures 8.2 mm in diameter. Numerous diverticula in the sigmoid region. There is a partially calcified nodule measuring 1.5 cm in the RIGHT perirectal fat. May be related to diverticular disease. No acute inflammation. Abdominal wall: Small fat-containing umbilical hernia. Pelvis: Normal urinary bladder. Bones: No osteoblastic or osteolytic bone disease. Notified CHRISTINE Emanuel at 03/09/2020 9:[address]/CT abdomen pelvis w con* [id number] IMPRESSION: 1. Acute appendicitis without rupture. 2. Moderate constipation and sigmoid diverticulosis. General surgery was consulted for further evaluation and potential management Review of Systems General: Reports: 10 or more systems reviewed and unremarkable except in HPI and below Medications/Allergies Home Medications Medication Instructions Recorded Confirmed Last Taken Type No Known Home Medications 03/09/20 03/09/20 Unknown History Allergies Allergy/AdvReac Type Severity Reaction Status Date / Time No Known Allergies Allergy Verified 03/09/20 09:46 PFSH Acute PFSH: Medical History DVT (deep venous thrombosis) Pneumonia Soft tissue mass Surgical History H/O: vasectomy History of right knee surgery Hx of tonsillectomy Social History Smoking and tobacco status: never smoked Vitals/I&O/Wt Last Vital Signs Temp 98.3 F 03/09/20 08:23 Pulse 52 L 03/09/20 09:40 Resp 18 03/09/20 09:42 BP 110/72 03/09/20 09:40 Pulse Ox 99 03/09/20 09:42 Weight last 48 hrs Weight 185 lb Physical Exam Narrative: EXAM NARRATIVE: Patient is conscious alert oriented X3 BMI 25 Head and neck examination PERRLA no masses no cervical lymphadenopathy no jaundice Cardiac examination audible S1-S2 no murmurs no gallops no arrhythmias Chest is clear bilateral,abscence of Rhonchi or wheezes,no surgical emphysema Abdomen nontender except at the right lower quadrant and slightly in the suprapubic region with localized tenderness and guarding otherwise,nondistended soft no organomegaly guarding or rigidity/no signs of peritonitis Extremities no cyanosis no clubbing no edema Data : 03/09/20 08:40 03/09/20 08:40 A&P Assessment and plan (1) Appendicitis: After thorough history physical examination and reviewing the chart and images of the CT scan with my personal interpretation, I did chemical dependency counselor the patient for laparoscopic appendectomy possible open. Indications, risks, benefits and alternatives all discussed with the patient and he did agree to proceed, patient verbalizes his understanding and he knows that he is a high risk of developing another episode of DVT. Informed consent per chart SCDs to be placed only on the right lower extremity and will give the patient pharmacologic DVT prophylaxis prior to surgery on-call to the OR. Status: Acute Attestations Medical Necessity Statement*: Observation status Time Spent in Patient Care: (>than 50% of time spent in counselling and/or direct pt care on unit). Coding Level of Care Code Acute Clinical Trial Coordinator for g Fwd Diagnoses Appendicitis K37
[2020-03-09] MEDS: piperacillin-tazobactam 3.375 GM in sodium chloride 0.9% (plus) 50 ML IV ×2 (09:48→17:10)
--- NOTE | 2020-03-09 09:58 | XR_ITS ---
WS: [id number] PORTABLE CHEST HISTORY: Surgical clearance, appendicitis. COMPARISON: 12/30/2019 Lungs are clear and well expanded. No pleural effusion or pneumothorax. Cardiac size: Normal. Mediastinum/Aorta: Normal mediastinum. No osseous abnormality seen. XR/XR chest 1V portable [id number] IMPRESSION: Unremarkable portable chest.
[2020-03-09 10:11] LABS: INR 0.94 (0.8-1.2)
[2020-03-09 10:11] LABS: Add Urine Microscopic? YES; Bilirubin Urine Neg (NEGATIVE); Blood Urine Trace (Negative); Glucose Urine UA Norm (Normal); Ketones Urine Negative (Negative); Leukocyte Esterase Urine Negative (Negative); Nitrate Urine Negative (Negative); Protein Urine Neg (Negative); Specific Gravity, Urine 1.005 (1.005-1.030); Urine Appearance Clear (CLEAR); Urine Color Straw (Yellow); Urobilinogen Urine Norm (Negative); pH Urine 5 (5-7)
--- NOTE | 2020-03-09 10:17 | ANES.PREANE2 ---
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 14 Was Beta Shaheen taken within 24 hours: N/A Last intake: 08 1 oz of pepsi 2200 last night 03/08 popsicles Social: Social History: Tobacco and No alcohol Comment: chewing tobacco Exam: Pre-Anes Outpt Exam: alert, oriented x 3, clear to auscultation bilaterally and regular rate & rhythm Airway: Cervical ROM: WNL MP: 3 Dentition: Full Pulmonary: Comments: hx pneumonia X7 Musc/skel: Musc/skel: None reported Neuropsych: Neuropsych: None reported Anesthetic Plan: ASA status: 2E Anesthesia: General Risk of > 500 ml blood loss (7ml/kg in children): No PFSH Anesthesia PFSH: Medical History (Updated 03/09/20 @ 10:01 by ) DVT (deep venous thrombosis) Social History Smoking and tobacco status: never smoked Data Anesthesia CBC & Chem 7: 03/09/20 08:40 03/09/20 08:40 Other Labs: Laboratory Results - last 48 hr 03/09/20 03/09/20 03/09/20 08:40 08:40 08:40 WBC 11.3 H RBC 4.64 Hgb 14.0 Hct 42.3 MCV 91.2 MCH 30.2 MCHC 33.1 RDW 11.9 L Plt Count 143 MPV 12.4 H Neut % (Auto) 78.2 Lymph % (Auto) 12.4 [place] % (Auto) 8.4 Eos % (Auto) 0.6 Baso % (Auto) 0.2 Neut # (Auto) 8.86 H Lymph # (Auto) 1.4 [place] # (Auto) 1.0 H Eos # (Auto) 0.1 Baso # (Auto) 0.0 Nucleated RBC % (auto) 0 Nucleated RBCs # 0.0 PT 12.80 INR 0.94 Sodium 137 Potassium 4.2 Chloride 103 Carbon Dioxide 25 Anion Gap 13.2 BUN 26 H Creatinine 0.9 GFR Calculation 95.5 Glucose 104 Calculated Osmolality 281 L Calcium 9.1 Total Bilirubin 0.4 AST 18 ALT 15 Alkaline Phosphatase 64 Total Protein 6.6 Albumin 4.5 Globulin 2.1 Lipase 20 Urine Color Urine Appearance Urine pH Ur Specific [place] Urine Protein Urine Glucose (UA) Urine Ketones Urine Blood Urine Nitrate Urine Bilirubin Urine Urobilinogen Ur Leukocyte Esterase Amorphous Sediment 03/09/20 09:26 WBC RBC Hgb Hct MCV MCH MCHC RDW Plt Count MPV Neut % (Auto) Lymph % (Auto) [place] % (Auto) Eos % (Auto) Baso % (Auto) Neut # (Auto) Lymph # (Auto) [place] # (Auto) Eos # (Auto) Baso # (Auto) Nucleated RBC % (auto) Nucleated RBCs # PT INR Sodium Potassium Chloride Carbon Dioxide Anion Gap BUN Creatinine GFR Calculation Glucose Calculated Osmolality Calcium Total Bilirubin AST ALT Alkaline Phosphatase Total Protein Albumin Globulin Lipase Urine Color Straw Urine Appearance Clear Urine pH 5 Ur Specific [place] 1.005 Urine Protein Neg Urine Glucose (UA) Norm Urine Ketones Negative Urine Blood Trace H Urine Nitrate Negative Urine Bilirubin Neg Urine Urobilinogen Norm Ur Leukocyte Esterase Negative Amorphous Sediment Not Reportable Cardiac Studies: No Data to Display
[2020-03-09 10:19] LABS: Add Urine Culture? No; RBC Urine 0-4 /hpf (0-2)
[2020-03-09] MEDS: fentaNYL 50 mcg/mL INJ 2mL IVP (11:03)
[2020-03-09] MEDS: heparin 5,000 unit/mL INJ 1 mL 3000 UNIT SUBCUT (11:35)
[2020-03-09] MEDS: lidocaine 2% INJ 20 mL INJECTION (15:00)
--- NOTE | 2020-03-09 15:03 | PM.OP ---
Operative Report Date of procedure: March 09, 2020 Pre-op Diagnosis: Acute appendicitis Post-op diagnosis: other (Acute retrocecal appendicitis without perforation) Procedure Done: Laparoscopic appendectomy Specimens removed/disposition: Appendix Surgeon: Alfredito Proctor Medical Engineer: Surgical el Potts Circulating nurses Aide Barreto and Mendez Anesthesia: General (pathology collector tSefan) Estimated blood loss (mL): 10 Condition: stable Brief History: This is a pleasant 34 years old gentleman presents with worsening abdominal pain, upon further work-up found to have acute appendicitis. After thorough history physical examination review the chart and images with my personal interpretation, I did student success counselor the patient for laparoscopic appendectomy and he did agree to proceed. Informed consent per chart Procedure: Patient after being identified in the holding area and asked to void urine, and informed consent per chart ,patient was then taken back to the OR placed in supine position got intubated by anesthesia left arm was tucked tucked ,Timeout was done verifying the patient's name/date of /planned procedure and destination after the procedure, all were in agreement., preoperative antibiotics administered per protocol. prep and drape of the abdomen was done under the usual sterile technique. Started by longitudinal skin incision supraumbilical using a Vaughn trocar technique safe entry to the abdominal cavity was achieved verified by using 10 mm zero degree laparoscopy, switched to a 30? scope under direct visualization a suprapubic 5 mm trocar was inserted followed by another 5 mm trocar inserted in the left lower quadrant, I was able to position the patient in an T Lyles and left side down, dissection of the prececal acutely inflamed appendix there was some adhesions towards the lateral pelvic wall that was taken down by sharp and blunt dissection, attention was deviated to the healthy base of the appendix where I had to switch the camera to 5 mm 30? scope got introduced through the left lower quadrant and through the Vaughn trocar under direct visualization a GI stapler 45 mm blue load was applied at the healthy part of the base of the appendix, and an Endoloop PDS was applied onto the mesoappendix for control , the appendix was then retrieved in an Endo Catch bag, final survey was done of the abdomen and pelvis , irrigation with warm saline, and suction was obtained, were mercury fluid like in the pelvis due to reaction from the inflamed appendix. 5 mm clips were applied onto the mesoappendix as well as the appendectomy staple line and a right lateral pelvic wall for minimal oozing. Final look laparoscopy was done showing no other abnormalities or injuries, all trocars were taken out under direct visualization after the supraumblical trocar site was closed by number one PDS sutures under direct vision using fascial closure device ,followed by skin closure using 4-0 Monocryl of all trocar site incisions. infiltration of local lidocaine 2% was done to all incision sites.Dry dressing was applied. Count was completed at the end of the procedure for [place] , sponges and instruments Patient tolerated the procedure well and was transferred to the recovery area after extubation. I was present for the whole entire procedure
[2020-03-09] MEDS: meperidine 50 mg/mL INJ 12.5 MG IVP ×2 (15:31)
--- NOTE | 2020-03-09 15:49 | SUR.PHASEI ---
1520 PT TO PACU AWAKE ALERT SHIVERING WARM BLANKES X 3 PT STILL SHIVERING SEE MEDS GIVEN FOR SHIVERING AND PAIN, ABD SOFT ABD SOFT WITH 3 SITES D/I
--- NOTE | 2020-03-09 15:58 | SUR.PHASEI ---
1550 PT IN HOLDING WAITING TO GIVE REPORT
[2020-03-09] MEDS: morphine 4 mg/mL SDV 1 mL 2 MG IVP ×3 (16:49→22:00)
[2020-03-09] MEDS: sodium chloride 0.9% 1,000 ML 100 ML IV (17:11)
[2020-03-09] MEDS: HYDROcodone-acetaminophen 5-325 mg Tablet 1 TAB PO (18:01)
[2020-03-10] VITALS (10 sets, daily range): BP systolic 98–128; BP diastolic 50–79; PULSE 43–64; RESP 14–18; TEMP 36.4–36.8; O2SAT 96–99
[2020-03-10] MEDS: morphine 4 mg/mL SDV 1 mL 2 MG IVP (00:08)
[2020-03-10] MEDS: piperacillin-tazobactam 3.375 GM in sodium chloride 0.9% (plus) 50 ML IV ×3 (02:32→17:05)
[2020-03-10 03:12] LABS: Basophils % 0.1 %; Eosinophils # 0.1 10^3/uL (0.0-0.8); Eosinophils % 0.9 %; Hematocrit 38.7 % (42.0-52.0); Lymphocytes # 0.9 10^3/uL (0.8-4.8); Lymphocytes % 9.4 %; Mean Corpuscular HGB Conc 33.6 g/dL (30.0-36.0); Mean Corpuscular Hemoglobin 31.3 pg (28.0-34.0); Mean Corpuscular Volume 93.3 fL (80-94); Mean Platelet Volume 12.2 fL (7.4-10.4); Monocytes # 0.6 10^3/uL (0.2-0.9); Monocytes % 6.3 %; Neutrophils # 8.16 10^3/uL (1.8-7.7); Neutrophils % 82.9 %; Nucleated Red Blood Cells % 0 %; Platelet Count 149 10^3/cmm (130-400); Red Blood Count 4.15 10^6/uL (4.1-5.3); Red Cell Distribution Width 11.9 % (12.1-15.1); White Blood Count 9.9 10^3/uL (4.0-10.0)
[2020-03-10 03:28] LABS: Anion Gap 15.6 (5-19); Blood Urea Nitrogen 15 mg/dL (6-20); Calcium 9.1 mg/dL (8.5-10.5); Carbon Dioxide 23 mmol/L (22-29); Chloride 105 mmol/L (98-107); Glomerular Filtration Rate 84.5 mL/min (90-130); Glucose 116 mg/dL (65-115); Osmolality Calculated 285 mOsm/kg (285-295); Potassium 4.6 mmol/L (3.5-5.1); Sodium 139 mmol/L (136-145)
[2020-03-10] MEDS: heparin 5,000 unit/mL INJ 1 mL 5000 UNIT SUBCUT ×3 (06:07→20:43)
[2020-03-10] MEDS: HYDROcodone-acetaminophen 5-325 mg Tablet 1 TAB PO (08:02)
[2020-03-10] MEDS: sodium chloride 0.9% 1,000 ML 100 ML IV ×2 (08:03→17:06)
--- NOTE | 2020-03-10 11:06 | PC.CHAP ---
Pastoral Care Encounter/Spiritual Assessment Type of Contact [] Declined maintenance apprentice visit [] Patient/Family/Request visit [] Outpatient visit [] Follow-up visit [] Physician referral [] Code/Alert [x] Routine visit [] Staff referral [] Actively dying [] Patient sleeping [] Family support [] [] Out of room [] Palliative care [] [] Receiving care in room [] Pre-surgical visit [] Trauma [] Long length of stay [] ICU visit [] Other: Relational/Emotional Strength [] Patient feels connected with others/family/visitors/staff [] Distress [] Loneliness/isolation [] Abandonment Spirituality of Patient [] Person of Cyndy [] Attends Advent of their Cyndy [] Believes in Prayer [] Reads Bible or Uatsdin materials [] There are Spiritual issues to be addressed Cupboard Builder Interventions [x] Prayer [x] Active listening [x Non-anxious presence [x] Spiritual/emotional support [] Crisis/trauma care [] Spiritual counseling [] Bereavement support [] Provided bereavement packet [] Provided Bible/devotional materials [] Provided toy/stuffed animal, coloring book to patient or family member [] Provided Communion [] Anointing/Jadwin [] Salvation [x] Completed spiritual assessment [] Other: Impact on Illness or Injury [] Angry [] Fearful [] Anxious [] Often cries [] Exhaustion [] Unable to work [] Unable to attend episcopalian [] Unable to walk/stand [] Unable to read [] Unable to drive [] Unable to eat/drink [] Unable to sleep [] Unable to be with family [] Patient intubated [] Other: Summary Patient resting well after surgery. Pain still present, but not as bad Time spent with patient 10 min
[2020-03-10] MEDS: oxyCODONE-APAP 5-325 mg Tablet 1 TAB PO ×2 (14:04→20:41)
[2020-03-10] MEDS: glycerin adult supp PR (17:43)
--- NOTE | 2020-03-10 18:25 | PC.NURSE ---
SHIFT SUMMARY PATIENT HAS AMBULATED MULTIPLE TIMES TODAY. TOLERATING FULL LIQUID DIET WITH NO NAUSEA. ACTIVE BOWEL SOUNDS, BUT STILL NEGATIVE FOR GAS. GOOD URINE OUTPUT. PAIN MEDICATION CHANGED TO OXYCODONE AND TOLERATING BETTER.
[2020-03-11 04:46] VITALS: BP 108/65; PULSE 48; RESP 16; TEMP 36.9; O2SAT 97
[2020-03-11] MEDS: heparin 5,000 unit/mL INJ 1 mL 5000 UNIT SUBCUT (05:13)
[2020-03-11 05:14] VITALS: RESP 18
[2020-03-11] MEDS: oxyCODONE-APAP 5-325 mg Tablet 1 TAB PO (05:14)
--- NOTE | 2020-03-11 05:50 | PC.NURSE ---
Summary Patient stated in beginning of shift that he passed a little gas and had a small bowel movement. He has not passed gas since then. He has been up and walking through shift.
[2020-03-11 07:07] VITALS: RESP 18
[2020-03-11 07:49] VITALS: BP 117/75; PULSE 51; RESP 16; TEMP 36.5; O2SAT 97
--- NOTE | 2020-03-11 08:25 | P.PN_ITS ---
Subjective Subjective: Interval history: Patient overall feels better Patient denies any chest pain Vitals/I&O/Wt Last Vital Signs Temp 97.7 F 03/11/20 07:49 Pulse 51 L 03/11/20 07:49 Resp 16 03/11/20 07:49 BP 117/75 03/11/20 07:49 Pulse Ox 97 03/11/20 07:49 03/10/20 03/11/20 03/11/20 22:59 06:59 14:59 Intake Total 1195 / 2225 240 / 2465 Output Total 1200 / 2200 1400 / 3600 Balance - -1160 / -1135 Physical Exam Narrative: EXAM NARRATIVE: Patient is conscious alert oriented X3 BMI 25 Head and neck examination PERRLA no masses no cervical lymphadenopathy no jaundice Cardiac examination audible S1-S2 no murmurs no gallops no arrhythmias Chest is clear bilateral,abscence of Rhonchi or wheezes,no surgical emphysema Abdomen nontender except mildly at the incision sites nondistended soft no organomegaly guarding or rigidity/no signs of peritonitis. Bowel sounds are present Extremities no cyanosis no clubbing no edema Data : 03/10/20 02:54 03/10/20 02:54 A&P Assessment and plan (1) Appendicitis: Condition resolved and patient is able to pass more gas Encourage ambulation We will plan to discharge patient home today as patient was supposed to be discharged home yesterday but he had small amount of a bowel movement and passed little gas Status: Resolved Attestations Medical Necessity Statement*: Observvation Coding Level of Care Code Acute Flight Software Test Engineer for [facility] Fw Diagnoses Appendicitis K37
[2020-03-11] MEDS: psyllium powder Pkt 1 PACKET PO (09:01)
--- NOTE | 2020-03-11 14:00 | P.SS_ITS ---
Short Stay Summary Providers Date of Admit/Discharge: 03/12/20 Attending Provider: Alfredito Proctor MD Primary Care Provider: Josie Cunningham DO Chief Complaint: abd pain HPI History of Present Illness Geovanny Cochran is a 34 year old male presents with worsening abdominal pain and a CT scan showed acute appendicitis, patient undergone uneventful laparoscopic appendectomy and was admitted on my service for observation status. Review of Systems General: Reports: 10 or more systems reviewed and unremarkable except in HPI and below Home Meds/Allergies Home Medications and Allergies Allergies Allergy/AdvReac Type Severity Reaction Status Date / Time No Known Allergies Allergy Verified 03/10/20 06:13 PFSH Acute PFSH: Medical History DVT (deep venous thrombosis) Pneumonia Soft tissue mass Surgical History H/O: vasectomy History of right knee surgery Hx of tonsillectomy Social History Smoking and tobacco status: never smoked Vitals/I&O/Wt Last Vital Signs Temp 98.1 F 03/10/20 04:00 Pulse 53 L 03/10/20 04:00 Resp 17 03/10/20 04:00 BP 100/61 03/10/20 04:00 Pulse Ox 96 03/10/20 04:00 03/09/20 03/09/20 03/10/20 14:59 22:59 06:59 Intake Total 1150 / 1150 110 / 1260 720 / 1980 Output Total 305 / 305 700 / 1005 Balance 1150 / 1150 -195 / 955 20 / 975 Weight last 48 hrs Weight 185 lb Physical Exam Narrative: EXAM NARRATIVE: Patient is conscious alert oriented X3 BMI 25 Head and neck examination PERRLA no masses no cervical lymphadenopathy no jaundice Cardiac examination audible S1-S2 no murmurs no gallops no arrhythmias Chest is clear bilateral,abscence of Rhonchi or wheezes,no surgical emphysema Abdomen nontender except mildly at the incision sites nondistended soft no organomegaly guarding or rigidity/no signs of peritonitis. Bowel sounds are plus Extremities no cyanosis no clubbing no edema Hospital Course Hospital Course: Patient overall did well during hospital stay and has been tolerating clear liquid diet and pain is under control with good urine output, been receiving pharmacologic DVT prophylaxis. Discharge Summary: 34 years old gentleman undergone uneventful laparoscopic appendectomy has been tolerating p.o. intake and awaiting bowel function prior to discharge home today 03/10, yet as patient continues to have very sluggish bowel activity I elected to keep the patient to be discharged the following day 03/11 as he continued to pass gas and had a bowel movement. Patient met the appropriate criteria prior to discharge home SSS Data Data Completed and Pending: Completed Studies During Hospitalization Category Date Time Status CT abdomen pelvis w con* [id number] Urge nt Cat Scan 03/09/20 08:32 Completed XR chest 1V nan ble [id number] Stat Exams 03/09/20 09:58 Completed Pending at discharge Category Date Time Status ES surgery / GI i mages Routine Exams 03/09/20 13:30 Ordered Pathology: Surgic al [PTH] Routine Pth 03/09/20 15:14 Ordered Diagnoses at Discharge Discharge Diagnosis (1) Appendicitis: Status: Resolved Discharge Plan Discharge Patient Disposition: Home Condition: Stable Prescriptions: New oxycodone 5 mg tablet 5 mg PO Q6H PRN (Reason: pain) Qty: 28 RF: 0 Lovenox 40 mg/0.4 mL syringe 40 mg SUBCUT DAILY 10 Days Qty: 4 RF: 0 Discharge Orders: Discharge Order (Routine); Ordered 03/10/20 Ordered By: Alfredito Proctor Referrals: Alfredito Proctor MD [Physician] - 03/18/20 9:30 am (RTC in one week) Josie Cunningham DO [Primary Care Provider] - 03/22/20 2:20 pm Discharge Diet: As Directed Discharge Activity: Limit activity as instructed Patient Instructions: Oxycodone/Acetaminophen (By mouth), Enoxaparin (In jection), Laparoscopic Appendectomy (DC), How to Give a Subcutaneous Injection (DC) Activity Restrictions/Additional Instructions: 1. Patient can shower after 48 hours from surgery 2. Remove Dermabond 7 to 10 days after surgery, if there is a secondary dressing can take down after 48 hours. 3. Up and walking as tolerated 4. Do lift more than 5 pounds first 2 weeks after surgery and not more than 25 pounds 6 to 8 weeks after surgery. 5. Do not operate heavy machinery or drive while using pain medications. 6.Contact the office or return to the ER for worsening nausea vomiting fevers or chills, or noticing any redness around incision sites or discharge. 7.Avoid constipation Discharge Date/Time: 03/11/20 09:35 Attestations Medical Necessity Statement*: Observation status Time Spent in Patient Care*: less than 30 min Specific Discharge Activities: Specific discharge activities: educating patient and educating and/or supporting family/caregiver Status at Discharge: Cognitive status at discharge: cognitively intact , Behavioral status at discharge: cooperative , Functional status at discharge: independent ambulation Overall status at discharge: patient is progressing back to baseline Quality Metrics Clinical Quality Measures: During this hospital stay, did patient experience: None 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
== END 2020-03-11 09:35 | disposition home or self-care (01) ==
LOC: ER 09:12 → OPS 10:00 → MEDSURG 03-10 12:28
PROVIDERS: Nurse Practitioner Family; Admitting Provider Surgery; PCP Family Medicine; Visit Provider Surgery
PROC: 0DTJ4ZZ Resection of Appendix, Percutaneous Endoscopic Approach (ICD-10-PCS; CPT 44970; principal; 2020-03-09 14:00)
DX: K35.80 Unspecified acute appendicitis (principal); Z86.718 Personal history of other venous thrombosis and embolism
CPT/HCPCS: 44970; 12345; 36415; 71045; 74177; 76705; 80048; 80053; 81001; 81003; 83690; 85025; 85610; 88304; 96361; 96365; 96366; 96372; 96374; 96375; 99283; G0378; J0131; J1100; J1644; J1885; J2175; J2270; J2405; J2543; J2704; J2710; J3010; J3490; J7030; Q9967

== ENCOUNTER 2020-09-28 06:52 | Outpatient (CLI) | payer BC, OTHER, SELFPAY ==
--- NOTE | 2020-09-28 | MR_ITS ---
WS: [id number] MRI LEFT KNEE NONCONTRAST TECHNIQUE: Axial PD, coronal PD fat sat, coronal PD, sagittal PD, and sagittal PD fat-sat images obta ined. CLINICAL INFORMATION: UNSPECIFIED INJURY OF LOWER LEG, INITIAL ENCOUNT COMPARISON: None. FINDINGS: Distal quadriceps and patella tendons are intact. Anterior and posterior cruciate ligaments are intac t. Chronic thinning of the medial and lateral meniscus. Radial undersurface tear involving the anter ior horn lateral meniscus extending to the meniscal root. Some of this may be postoperative. Normal m edial meniscus. 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 No subchondral edema. Medial and lateral collateral ligaments are intact. Mild chondromalacia involving the medial and lat eral joint compartments. Small suprapatellar effusion. Normal popliteal fossa. MR/MR knee LT wo con* [id number] IMPRESSION: 1. Anterior and posterior cruciate ligaments are intact. 2. Advanced chondromalacia patella with chondral fissuring advanced for patien t this age. No subchondral edema. Small suprapatellar effusion. 3. Moderate narrowing of the medial and lateral joint compartments advanced fo r patient this age with chondromalacia. 4. Radial undersurface tear anterior horn lateral meniscus extending to the me niscal root. Some this may be due to prior partial meniscectomy. Normal medial meniscus. 5. Medial and lateral collateral ligaments are intact.
== END 2020-09-28 06:53 | disposition home or self-care (01) ==
PROVIDERS: PCP Family Medicine; Visit Provider Orthopaedic Surgery
DX: S83.282A Other tear of lateral meniscus, current injury, left knee, initial encounter (principal); X58.XXXA Exposure to other specified factors, initial encounter; M22.42 Chondromalacia patellae, left knee; M25.462 Effusion, left knee
CPT/HCPCS: 73721

== ENCOUNTER → 2022-06-26 12:17 | Outpatient (BNVA) | payer BC, OTHER, SELFPAY | PROVIDERS: PCP Family Medicine; Visit Provider Internal Medicine | DX: R76.8 Other specified abnormal immunological findings in serum (principal); L40.9 Psoriasis, unspecified | CPT/HCPCS: 72202; 73120 ==

== ENCOUNTER 2022-06-27 08:09 | Outpatient (CLI) | payer BC, OTHER, SELFPAY ==
[2022-06-27 09:00] LABS: Basophils % 0.5 %; Eosinophils # 0.1 10^3/uL (0.0-0.8); Eosinophils % 1.3 %; Hematocrit 42.8 % (42.0-52.0); Hemoglobin 14.4 g/dL (11.7-16.6); Lymphocytes # 1.2 10^3/uL (0.8-4.8); Lymphocytes % 21.7 %; Mean Corpuscular HGB Conc 33.6 g/dL (30.0-36.0); Mean Corpuscular Hemoglobin 30.7 pg (28.0-34.0); Mean Corpuscular Volume 91.3 fl (80-94); Monocytes # 0.5 10^3/uL (0.2-0.9); Monocytes % 8.1 %; Neutrophils # 3.79 10^3/uL (1.8-7.7); Nucleated Red Blood Cells % 0 %; Platelet Count 149 10^3/cmm (130-400); Red Blood Count 4.69 10^6/uL (4.1-5.3); Red Cell Distribution Width 12.1 % (12.1-15.1); White Blood Count 5.6 10^3/uL (4.0-10.0)
[2022-06-27 09:03] LABS: Erythrocyte Sedimentation Rate < 1 mm/hr (0-10)
[2022-06-27 09:15] LABS: Bilirubin Urine Neg (Negative); Blood Urine 2+ (Negative); Glucose Urine UA Norm (Normal); Ketones Urine Negative (Negative); Leukocyte Esterase Urine Negative (Negative); Nitrate Urine Negative (Negative); Protein Urine Neg (Negative); Specific Gravity, Urine 1.025 (1.005-1.030); Urine Appearance Clear (CLEAR); Urine Color Yellow (Yellow); Urobilinogen Urine Norm (Negative); pH Urine 6 (5-7)
[2022-06-27 09:16] LABS: Add Urine Microscopic? YES
[2022-06-27 09:34] LABS: HIV 1 & 2 Antibody Non-Reactive (Non-Reactiv); HIV 1 & 2 Antigen Non-Reactive (Non-Reactiv)
[2022-06-27 09:36] LABS: Alanine Aminotransferase 35 U/L (0-41); Albumin Level 4.3 g/dL (3.5-5.2); Alkaline Phosphatase 55 U/L (40-130); Anion Gap 13.6 (5-19); Aspartate Amino Transferase 55 U/L (0-40); Blood Urea Nitrogen 19 mg/dL (6-20); Calcium 9.1 mg/dL (8.5-10.5); Carbon Dioxide 27 mmol/L (22-29); Chloride 101 mmol/L (98-107); Complement C3 111 mg/dL (90-180); Globulin 2.3 g/dL (1.3-4.6); Glomerular Filtration Rate 93.9 mL/min (90-130); Glucose 92 mg/dL (65-115); Immunoglobulin IGA 101 mg/dL (70-400); Immunoglobulin IGG 545 mg/dL (700-1600); Immunoglobulin IGM 72 mg/dL (40-230); Osmolality Calculated 288 mOsm/kg (285-295); Phosphorus 2.9 mg/dL (2.5-4.5); Potassium 3.6 mmol/L (3.5-5.1); Sodium 138 mmol/L (136-145); Testosterone Total 478.1 ng/dL (249-836); Total Bilirubin 0.4 mg/dL (0.15-1.2); Total Protein 6.6 g/dL (6.6-8.7)
[2022-06-27 09:42] LABS: Cortisol Random 10.05 ug/dL (2.47-19.5); Hepatitis B Core AB, Total Non-Reactive (Nonreactive); Hepatitis B Surface Antigen Non-Reactive (Nonreactive); Hepatitis C Virus Antibody Non-Reactive (Nonreactive)
[2022-06-27 09:47] LABS: Bacteria Urine 1+ /hpf; RBC Urine 0-4 /hpf (0-2); WBC Urine 0-4 /hpf (0-5)
[2022-06-27 09:48] LABS: Add Urine Culture? No
[2022-06-27 09:57] LABS: Creatine Phosphokinase 2762 U/L (39-308)
[2022-06-28 12:38] LABS: CENTROMERE B ANTIBODY <1.0 NEG AI (<1.0 NEG); JO-1 ANTIBODY <1.0 NEG AI (<1.0 NEG); RNP ANTIBODY <1.0 NEG AI (<1.0 NEG); SCL-70 ANTIBODY <1.0 NEG AI (<1.0 NEG); SJOGREN'S ANTIBODY (SS-A) <1.0 NEG AI (<1.0 NEG); SM ANTIBODY <1.0 NEG AI (<1.0 NEG); SS-B <1.0 NEG AI (<1.0 NEG)
[2022-06-28 13:14] LABS: COMPLEMENT, TOTAL (CH50) >60 U/mL (31-60)
[2022-06-28 15:33] LABS: COMPLEMENT COMPONENT C3C 111 mg/dL (82-185); COMPLEMENT COMPONENT C4C 22 mg/dL (15-53)
[2022-06-28 15:49] LABS: THYROID PEROXIDASE ANTIBODIES <1 IU/mL (<9)
[2022-06-28 17:17] LABS: Cyclic Citrullinated Peptide <16 UNITS
[2022-06-29 11:38] LABS: ANA SCREEN, IFA POSITIVE (NEGATIVE)
[2022-06-29 13:04] LABS: Immunoglobulin A 91 mg/dL (47-310)
[2022-06-29 14:56] LABS: HLA-B27 NEGATIVE (NEGATIVE)
[2022-06-30 05:18] LABS: Gliadin Ab.IgA <1.0 U/mL; Gliadin Ab.IgG <1.0 U/mL
[2022-06-30 05:22] LABS: Tissue Transglutaminase IgA Ab <1.0 U/mL; Tissue transglutaminase Ab.IgG <1.0 U/mL
[2022-06-30 11:13] LABS: Beef (BOS SPP) Class 0; Galactose-alpha-1,3 IgE <0.10 kU/L (<0.10); Lamb / Mutton (Ovis SPP) IgE <0.10 kU/L (<0.35); Lamb / Mutton Class 0; Pork Class 0
[2022-06-30 16:47] LABS: DNA AB (DS) CRITHIDIA,IFA NEGATIVE (NEGATIVE)
[2022-07-01 13:47] LABS: Adrenocorticotropic Hormone 10 pg/mL (6-50)
== END 2022-06-27 08:10 | disposition home or self-care (01) ==
PROVIDERS: PCP Family Medicine; Visit Provider Internal Medicine
DX: R76.8 Other specified abnormal immunological findings in serum (principal); M45.0 Ankylosing spondylitis of multiple sites in spine
CPT/HCPCS: 36415; 80053; 81001; 82024; 82533; 82550; 82784; 83516; 84100; 84403; 85025; 85651; 86003; 86008; 86140; 86160; 86162; 86200; 86235; 86255; 86376; 86704; 86803; 86812; 87340; 87806

== ENCOUNTER 2022-07-26 08:05 | Outpatient (CLI) | payer BC, SELFPAY ==
[2022-07-26 09:05] LABS: Basophils % 0.3 %; Eosinophils # 0.1 10^3/uL (0.0-0.8); Eosinophils % 1.2 %; Hematocrit 42.3 % (42.0-52.0); Hemoglobin 14.2 g/dL (11.7-16.6); Lymphocytes # 1.2 10^3/uL (0.8-4.8); Lymphocytes % 21.6 %; Mean Corpuscular HGB Conc 33.6 g/dL (30.0-36.0); Mean Corpuscular Hemoglobin 30.7 pg (28.0-34.0); Mean Corpuscular Volume 91.4 fl (80-94); Mean Platelet Volume 11.6 fL (7.4-10.4); Monocytes # 0.6 10^3/uL (0.2-0.9); Monocytes % 9.8 %; Neutrophils # 3.83 10^3/uL (1.8-7.7); Neutrophils % 66.8 %; Nucleated Red Blood Cells % 0 %; Platelet Count 168 10^3/cmm (130-400); Red Blood Count 4.63 10^6/uL (4.1-5.3); White Blood Count 5.7 10^3/uL (4.0-10.0)
[2022-07-26 09:24] LABS: Alanine Aminotransferase 17 U/L (0-41); Albumin Level 4.3 g/dL (3.5-5.2); Alkaline Phosphatase 57 U/L (40-130); Anion Gap 12.2 (5-19); Aspartate Amino Transferase 20 U/L (0-40); Blood Urea Nitrogen 19 mg/dL (6-20); Calcium 9.1 mg/dL (8.5-10.5); Carbon Dioxide 26 mmol/L (22-29); Chloride 105 mmol/L (98-107); Creatine Phosphokinase 292 U/L (39-308); Globulin 1.9 g/dL (1.3-4.6); Glomerular Filtration Rate 93.9 mL/min (90-130); Glucose 98 mg/dL (65-115); Osmolality Calculated 290 mOsm/kg (285-295); Phosphorus 3.7 mg/dL (2.5-4.5); Potassium 4.2 mmol/L (3.5-5.1); Sodium 139 mmol/L (136-145); Total Bilirubin 0.4 mg/dL (0.15-1.2); Total Protein 6.2 g/dL (6.6-8.7)
== END 2022-07-26 08:06 | disposition home or self-care (01) ==
PROVIDERS: PCP Family Medicine; Visit Provider Internal Medicine
DX: M25.50 Pain in unspecified joint (principal)
CPT/HCPCS: 36415; 80053; 82550; 84100; 85025

== ENCOUNTER → 2022-10-03 16:14 | Outpatient (BNVA) | payer BC, SELFPAY | PROVIDERS: PCP Family Medicine; Visit Provider Internal Medicine | DX: M25.50 Pain in unspecified joint (principal); R76.8 Other specified abnormal immunological findings in serum | CPT/HCPCS: 80053; 81003; 82784; 84443; 85025; 85651; 86140 ==

== ENCOUNTER 2023-01-08 08:47 | Outpatient (CLI) | payer BC, SELFPAY ==
[2023-01-08 09:35] LABS: Basophils % 0.4 %; Eosinophils # 0.1 10^3/uL (0.0-0.8); Eosinophils % 1.5 %; Hematocrit 40.9 % (42.0-52.0); Hemoglobin 13.8 g/dL (11.7-16.6); Lymphocytes # 1.1 10^3/uL (0.8-4.8); Lymphocytes % 24.3 %; Mean Corpuscular HGB Conc 33.7 g/dL (30.0-36.0); Mean Corpuscular Volume 91.9 fl (80-94); Mean Platelet Volume 11.6 fL (7.4-10.4); Monocytes # 0.5 10^3/uL (0.2-0.9); Neutrophils # 2.87 10^3/uL (1.8-7.7); Neutrophils % 63.6 %; Nucleated Red Blood Cells % 0 %; Platelet Count 153 10^3/cmm (130-400); Red Blood Count 4.45 10^6/uL (4.1-5.3); White Blood Count 4.5 10^3/uL (4.0-10.0)
[2023-01-08 09:55] LABS: Erythrocyte Sedimentation Rate < 1 mm/hr (0-10)
[2023-01-08 09:57] LABS: Alanine Aminotransferase 18 U/L (0-41); Albumin Level 4.1 g/dL (3.5-5.2); Alkaline Phosphatase 55 U/L (40-130); Anion Gap 12.4 (5-19); Aspartate Amino Transferase 18 U/L (0-40); Blood Urea Nitrogen 19 mg/dL (6-20); Calcium 9.1 mg/dL (8.5-10.5); Carbon Dioxide 27 mmol/L (22-29); Chloride 106 mmol/L (98-107); Glomerular Filtration Rate 83.2 mL/min (90-130); Glucose 99 mg/dL (65-115); Osmolality Calculated 294 mOsm/kg (285-295); Phosphorus 2.3 mg/dL (2.5-4.5); Potassium 4.4 mmol/L (3.5-5.1); Sodium 141 mmol/L (136-145); Testosterone Total 531.4 ng/dL (249-836); Total Bilirubin 0.4 mg/dL (0.15-1.2); Total Protein 6.1 g/dL (6.6-8.7)
== END 2023-01-08 08:48 | disposition home or self-care (01) ==
PROVIDERS: PCP Family Medicine; Visit Provider Internal Medicine
DX: M25.50 Pain in unspecified joint (principal); R76.8 Other specified abnormal immunological findings in serum
CPT/HCPCS: 36415; 80053; 84100; 84403; 85025; 85651; 86140

== ENCOUNTER 2023-01-24 20:11 | Emergency (ER) | payer BC, SELFPAY ==
[2023-01-24 20:13] VITALS: BP 146/82; PULSE 74; RESP 14; O2SAT 98
--- NOTE | 2023-01-24 20:17 | W.ED.WOUNDLC ---
HPI - Wound/Laceration General: Chief Complaint: Wound/Laceration Stated Complaint: Left Knee Injury Time Seen by Provider: 01/24/23 20:17 History of Present Illness: 37-year-old male patient comes in today with injury to the left knee. Patient has a 2-1/2 cm laceration to the anterior knee. Patient reports that his last tetanus was in the last 3 to 5 years. Patient appears nontoxic. Patient appears no acute distress. Incident occurred this afternoon when patient was pushing his wheelbarrow with his son and hit a hole that caused wheelbarrow to fly forward he reached out to grab his son and caught his knee against the stand of the wheelbarrow. Patient appears nontoxic. Patient appears mild pain. Associated symptoms: Denies fever(s) or vomiting Review of Systems General: Reports: 10 or more systems reviewed and unremarkable except in HPI and below Const: Denies: fever(s) Card: Denies: chest pain Resp: Denies: productive cough GI: Denies: vomiting Musc: Reports: extremity pain Skin/Breast: Reports: new lesions Neuro: Denies: headache(s) PFSH ED PFSH: Medical History SANJU positive DVT (deep venous thrombosis) Low serum IgG for age Pneumonia Soft tissue mass Surgical History H/O: vasectomy History of laparoscopic appendectomy (~02/2020) dr. mckeon. [facility] [place] History of right knee surgery Hx of tonsillectomy Social History Smoking and tobacco status: never smoked Physical Exam Const: COMMON NORMALS: alert HENMT: COMMON NORMALS: normocephalic HEAD & SCALP: normocephalic Neck/C-Spine: COMMON NORMALS: full ROM Resp: COMMON NORMALS: normal respiratory effort Cardio: COMMON NORMALS: regular rate RATE: regular rate Extremity: LEFT LOWER EXTREMITY: Yes lower leg (2 and half centimeter laceration anterior left knee) Left lower leg: Yes inspection, Yes palpation and Yes neurovascular exam Neuro: SENSORIUM/ORIENTATION: Yes alert Skin: TRAUMA: laceration (Anterior left knee 2-1/2 cm) linear Procedures Laceration Laceration 1: Site: lower extremity Side (If applicable): left Size (cm): 2.5 Description: linear Depth: simple, single layer Local Anesthetic: lidocaine 1% Amount of anesthesia used (mL): 3 Pre-repair: wound explored and irrigated extensively Skin layer closed with: nylon Size (cm): 4-0 Number of sutures: 3 Technique: simple, interrupted (2) and horizontal mattress (1) Course Vital Signs: Vital signs: Vital Signs Pulse Rate 74 01/24/23 20:13 Respiratory Rate 14 01/24/23 20:13 Blood Pressure 146/82 01/24/23 20:13 Pulse Oximetry 98 01/24/23 20:13 Oxygen Delivery Me thod Room Air 01/24/23 20:13 MDM - Wound/Laceration Medical Decision Making 37-year-old male patient comes in with injury to the left knee. On exam patient has a 2-1/2 cm laceration to the left knee. Patient has normal range of motion, no foreign body, no fracture. Differential diagnosis includes but not limited to need for prophylaxis tetanus, foreign body, fracture, laceration. As reviewed no fracture or foreign body was noted in the wound. Patient has good range of motion of the wound. Wound was irrigated and closed with sutures. Patient tolerated well. Discharge Plan Discharge Patient Disposition: Home Clinical Impression: Laceration of knee, left Qualifiers: Encounter type: initial encounter Qualified Code(s): S81.012A - Laceration without foreign body, left knee, initial encounter Condition: Stable Prescriptions: New amoxicillin-pot clavulanate 875-125 mg tablet 1 tab PO BID Qty: 20 0RF No Action meloxicam 15 mg tablet 15 mg PO DAILY Qty: 30 3RF hydroxychloroquine 200 mg tablet 200 mg PO BID Qty: 60 3RF Discharge Orders: Discharge ED (Routine); Ordered 01/24/23 Ordered By: Matias Headley Referrals: Josie Cunningham DO [Primary Care Provider] - Discharge Diet: Usual diet Discharge Activity: Increase activity as tolerated Patient Instructions: Laceration (ED) Activity Restrictions/Additional Instructions: Keep wound clean and dry as possible. Is important keep the wound as dry as possible for the next 48 hours. After that she can wash the wound with mild soap and water and cover with antibiotic ointment. Monitor site for signs of infection such as increased redness and swelling. Take antibiotics if this begins. Follow-up with primary care in 1 week for recheck. Sutures need to come out in 10 to 14 days. 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
[2023-01-24] MEDS: lidocaine 1% INJ 10 mL (per mL) INJECTION (20:26)
--- NOTE | 2023-01-24 20:27 | PC.NURSE ---
Lidocaine administered by physician.
== END 2023-01-24 20:56 | disposition home or self-care (01) ==
PROVIDERS: Emergency Provider Nurse Practitioner Family; PCP Family Medicine
DX: S81.012A Laceration without foreign body, left knee, initial encounter (principal); W22.8XXA Striking against or struck by other objects, initial encounter
CPT/HCPCS: 12001; 99283

== ENCOUNTER → 2024-10-01 08:01 | Outpatient (BNVA) | payer BC, SELFPAY | PROVIDERS: PCP Family Medicine; Visit Provider Student in an Organized Health Care Education/Training Program | DX: M25.562 Pain in left knee (principal); M25.561 Pain in right knee | CPT/HCPCS: 73560; 73565 ==

== ENCOUNTER 2024-10-01 09:17 | Outpatient (CLI) | payer BC, SELFPAY | END 2024-10-01 09:18 | disposition home or self-care (01) | LOC: SPT 09:18 | PROVIDERS: PCP Family Medicine; Visit Provider Student in an Organized Health Care Education/Training Program | DX: Z46.89 Encounter for fitting and adjustment of other specified devices (principal); M25.562 Pain in left knee | CPT/HCPCS: L1812 ==

== ENCOUNTER 2024-10-19 10:00 | Emergency (ER) | payer BC, SELFPAY ==
[2024-10-19 10:21] VITALS: BP 135/79; PULSE 79; RESP 18; TEMP 36.8; O2SAT 99; BMI 27.3
--- NOTE | 2024-10-19 10:31 | XRR_ITS ---
PROCEDURE INFORMATION: Exam: XR Chest Exam date and time: 10/19/2024 10:42 AM Age: 39 years old Clinical indication: Cough TECHNIQUE: Imaging protocol: Radiologic exam of the chest. Views: 1 view. COMPARISON: CR XR chest 1V portable [id number] 03/09/2020 10:06 AM FINDINGS: Lungs: Central patchy airspace opacities of the left lung field and retrocardiac region. Pleural spaces: Unremarkable. No pleural effusion. No pneumothorax. Heart/Mediastinum: Unremarkable. No cardiomegaly. Bones/joints: Unremarkable. XR/XR chest 1V portable [id number] IMPRESSION: Findings concerning for left lower lobe pneumonia. Correlate clinically.
--- NOTE | 2024-10-19 10:37 | ED_ITS ---
HPI - General Adult 2 General: Chief complaint: General Medical Stated complaint: dizzy, nausea, fever, difficulty swallowing Time Seen by Provider: 10/19/24 10:08 Source: patient Mode of arrival: ambulatory Limitations: no limitations History of Present Illness: 39-year-old male states he has not felt well over the last week. He states he has been having some headaches he has been having congestion runny nose also has been having a cough with some dyspnea. He denies any chest pain patient's not hypoxic. He states he had had a period where he felt lightheaded this morning denies any vomiting has had some diarrhea. Denies abdominal pain. Associated symptoms: Deny chest pain, headache(s), nausea, rash or vomiting Related Data Home Medications ?Medication ?Instructions ?Recorded ?Confirmed amoxicillin 875 mg-potassium 1 tab PO BID 10/19/2410/14 clavulanate 125 mg tablet Previous Rx's ?Medication ?Instructions ?Recorded doxycycline hyclate 100 mg tablet 100 mg PO BID 7 days #14 tabs 10/19/24 Allergies Allergy/AdvReac Type Severity Reaction Status Date / Time No Known Allergies Allergy Verified 10/01/24 06:57 Review of Systems 2 Const: Reports: fever(s), chills and body aches; Denies: change in appetite ENMT: Denies: throat pain or dental pain Card: Denies: chest pain Resp: Reports: non-productive cough GI: Denies: abdominal pain, nausea, vomiting or diarrhea Musc: Denies: neck pain or back pain Skin/Breast: Denies: rash Neuro: Denies: headache(s) PFSH ED 2 PFSH: Medical History 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 mckeon. [facility] [place] History of right knee surgery H/O: vasectomy Hx of tonsillectomy Social History Smoking and tobacco/nicotine status: current every day tobacco/nicotine user (chews) Marital status: Physical Exam 2 Const: COMMON NORMALS: no acute distress, patient oriented x3 and healthy appearing HENMT: COMMON NORMALS: normocephalic and atraumatic HEAD & SCALP: n ormocephalic and atraumatic THROAT: posterior oropharynx normal Eye: COMMON NORMALS: conjunctivae normal CONJUNCTIVA: Yes conjunctivae normal Neck/C-Spine: COMMON NORMALS: full ROM and supple Chest: COMMONS NORMALS: normal inspection of the chest and normal palpation of entire chest wall Resp: COMMON NORMALS: normal respiratory effort, No retractions, No use of accessory muscles and clear to auscultation bilaterally AUSCULTATION: clear to auscultation bilaterally Cardio: COMMON NORMALS: regular rate, regular rhythm and No murmurs present (Cardio) RATE: regular rate RHYTHM: regular rhythm GI: COMMON NORMALS: Normal to inspection, nondistended, normoactive bowel sounds present, Soft to palpation, non-tender and no masses PALPATION: Yes Soft to palpation Extremity: COMMON NORMALS: normal to inspection and full ROM Neuro: COMMON NORMALS: patient oriented x3, moves all extremities and no focal motor deficits Psych: COMMON NORMALS: mental status grossly normal, Normal thought process present and cooperative THOUGHT PROCESS: Normal thought process present Skin: COMMON NORMALS: no rashes or lesions noted and no wounds GENERAL SKIN EXAM: no rashes or lesions noted Course 2 Vital Signs: Vital signs: Vital Signs Temperature 98.2 F 10/19/24 10:21 Pulse Rate 67 10/19/24 11:07 Respiratory Rate 16 10/19/24 11:05 Blood Pressure 135/79 10/19/24 10:21 Pulse Oximetry 97 10/19/24 11:05 Oxygen Delivery Me thod Room Air 10/19/24 11:05 [facility] - General Adult Medical Decision Making Patient presents here with cough fever does have pneumonia. Patient blood works normal is not requiring oxygen we will start him on doxycycline he is to follow- up with PCP and return if worsening. Medical Records I reviewed the patient's medical records. Lab Data I reviewed the patient's lab results. 10/19/24 10:39 10/19/24 10:39 Radiology Impressions Chest X-Ray 10/19/24 10:31 IMPRESSION: Findings concerning for left lower lobe pneumonia. Correlate clinically. Laboratory Results WBC 8.04 10^3/uL (3.29-11.43) 10/19/24 10:39 RBC 4.69 10^6/uL (3.85-5.65) 10/19/24 10:39 Hgb 14.10 g/dL (11.27-16.99) 10/19/24 10:39 Hct 41.5 % (37-53) 10/19/24 10:39 MCV 88.5 fl (82-101) 10/19/24 10:39 MCH 30.1 pg (27-33) 10/19/24 10:39 MCHC 34.0 g/dL (30-55) 10/19/24 10:39 RDW 12.1 % (12.1-15.1) 10/19/24 10:39 Plt Count 139 10^3/cmm (157-399) L 10/19/24 10:39 MPV 11.3 fL (7.4-10.4) H 10/19/24 10:39 Neut % (Auto) 83.9 % 10/19/24 10:39 Lymph % (Auto) 5.2 % 10/19/24 10:39 [facility] % (Auto) 10.1 % 10/19/24 10:39 Eos % (Auto) 0.4 % 10/19/24 10:39 Baso % (Auto) 0.2 % 10/19/24 10:39 Neut # (Auto) 6.74 10^3/uL (1.8-7.7) 10/19/24 10:39 Lymph # (Auto) 0.4 10^3/uL (0.8-4.8) L 10/19/24 10:39 [facility] # (Auto) 0.8 10^3/uL (0.2-0.9) 10/19/24 10:39 Eos # (Auto) 0.0 10^3/uL (0.0-0.8) 10/19/24 10:39 Baso # (Auto) 0.0 10^3/uL (0.0-0.1) 10/19/24 10:39 Nucleated RBC % (auto) 0 % 10/19/24 10:39 Nucleated RBCs # 0.0 /100WBC 10/19/24 10:39 Sodium 134 mmol/L (136-145) L 10/19/24 10:39 Potassium 3.9 mmol/L (3.5-5.1) 10/19/24 10:39 Chloride 102 mmol/L (98-107) 10/19/24 10:39 Carbon Dioxide 20 mmol/L (22-29) L 10/19/24 10:39 Anion Gap 15.9 (5-19) 10/19/24 10:39 BUN 19 mg/dL (6-20) 10/19/24 10:39 Creatinine 1.1 mg/dL (0.7-1.2) 10/19/24 10:39 GFR Calculation 73.8 mL/min (90-130) L 10/19/24 10:39 Glucose 117 mg/dL (65-115) H 10/19/24 10:39 Calculated Osmolality 281 mOsm/kg (285-295) L 10/19/24 10:39 Calcium 8.9 mg/dL (8.5-10.5) 10/19/24 10:39 Magnesium 1.7 mg/dL (1.7-2.3) 10/19/24 10:39 Total Bilirubin 0.4 mg/dL (0.15-1.2) 10/19/24 10:39 AST 14 U/L (0-40) 10/19/24 10:39 ALT 16 U/L (0-41) 10/19/24 10:39 Alkaline Phosphatase 60 U/L (40-130) 10/19/24 10:39 Total Protein 6.4 g/dL (6.6-8.7) L 10/19/24 10:39 Albumin 3.9 g/dL (3.5-5.2) 10/19/24 10:39 Globulin 2.5 g/dL (1.3-4.6) 10/19/24 10:39 TSH 0.21 uIU/mL (0.27-4.20) L 10/19/24 10:39 Influenza A (PCR) Negative (Negative) 10/19/24 10:39 Influenza Type B (PCR) Negative (Negative) 10/19/24 10:39 RSV (PCR) Negative (Negative) 10/19/24 10:39 SARS-CoV-2 (PCR) Negative (Negative) 10/19/24 10:39 All radiology interpretation(s) finalized by discharge Discharge Plan Discharge Patient Disposition: Home Clinical Impression: Pneumonia Condition: Stable Prescriptions: New doxycycline hyclate 100 mg tablet 100 mg PO BID 7 Days Qty: 14 0RF No Action amoxicillin-pot clavulanate 875-125 mg tablet 1 tab PO BID Discharge Orders: Discharge ED (Routine); Ordered 10/19/24 Ordered By: Christin Pink Referrals: Josie Cunningham DO [Primary Care Provider] - Discharge Diet: Advance as tolerated Discharge Activity: Resume usual activity Patient Instructions: Pneumonia (ED) Stand Alone Forms: Work/School Release Print Language: Thai 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
[2024-10-19 10:45] LABS: Basophils % 0.2 %; Eosinophils % 0.4 %; Hematocrit 41.5 % (37-53); Lymphocytes # 0.4 10^3/uL (0.8-4.8); Lymphocytes % 5.2 %; Mean Corpuscular Hemoglobin 30.1 pg (27-33); Mean Corpuscular Volume 88.5 fl (82-101); Mean Platelet Volume 11.3 fL (7.4-10.4); Monocytes # 0.8 10^3/uL (0.2-0.9); Monocytes % 10.1 %; Neutrophils # 6.74 10^3/uL (1.8-7.7); Neutrophils % 83.9 %; Nucleated Red Blood Cells % 0 %; Platelet Count 139 10^3/cmm (157-399); Red Blood Count 4.69 10^6/uL (3.85-5.65); Red Cell Distribution Width 12.1 % (12.1-15.1); White Blood Count 8.04 10^3/uL (3.29-11.43)
[2024-10-19] MEDS: sodium chloride 0.9% 1,000 ML 999 ML IV (10:55)
[2024-10-19] MEDS: ondansetron 2 mg/ML SDV 2 mL 4 MG IVP (10:57)
[2024-10-19] MEDS: ketorolac 30 mg/mL INJ 15 MG IVP (10:58)
[2024-10-19] MEDS: dexamethasone 10 mg/mL INJ IVP (11:02)
[2024-10-19 11:05] VITALS: PULSE 63; RESP 16; O2SAT 97
[2024-10-19] MEDS: ipratropium-albuterol 3 mL Neb INHALATION (11:06)
[2024-10-19 11:07] VITALS: PULSE 67
[2024-10-19 11:11] LABS: Alanine Aminotransferase 16 U/L (0-41); Albumin Level 3.9 g/dL (3.5-5.2); Alkaline Phosphatase 60 U/L (40-130); Anion Gap 15.9 (5-19); Aspartate Amino Transferase 14 U/L (0-40); Blood Urea Nitrogen 19 mg/dL (6-20); Calcium 8.9 mg/dL (8.5-10.5); Carbon Dioxide 20 mmol/L (22-29); Chloride 102 mmol/L (98-107); Globulin 2.5 g/dL (1.3-4.6); Glomerular Filtration Rate 73.8 mL/min (90-130); Glucose 117 mg/dL (65-115); Magnesium 1.7 mg/dL (1.7-2.3); Osmolality Calculated 281 mOsm/kg (285-295); Potassium 3.9 mmol/L (3.5-5.1); Sodium 134 mmol/L (136-145); Thyroid Stimulating Hormone 0.21 uIU/mL (0.27-4.20); Total Bilirubin 0.4 mg/dL (0.15-1.2); Total Protein 6.4 g/dL (6.6-8.7)
[2024-10-19 11:25] LABS: Influenza A NEGATIVE (Negative); Influenza B NEGATIVE (Negative); Respiratory Syncytial Virus Ce NEGATIVE (Negative); SARS-CoV-2 PCR NEGATIVE (Negative)
[2024-10-19 12:16] VITALS: BP 108/59; PULSE 69; O2SAT 94
== END 2024-10-19 12:20 | disposition home or self-care (01) ==
PROVIDERS: Emergency Provider Emergency Medicine; PCP Family Medicine
DX: J18.9 Pneumonia, unspecified organism (principal); Z11.52 Encounter for screening for COVID-19; F17.220 Nicotine dependence, chewing tobacco, uncomplicated
CPT/HCPCS: 36415; 71045; 80053; 83735; 84443; 85025; 87637; 94640; 96374; 96375; 99284; J1100; J1885; J2405; J7030

== ENCOUNTER 2025-05-05 11:32 | Emergency (ER) | payer OTHER, SELFPAY ==
--- NOTE | 2025-05-05 11:34 | XR_ITS ---
WS: [id number] XR knee RT 4V [id number] REASON FOR EXAM: R knee deformity s/p fall, include sunrise FINDINGS: There appears to have been an avulsion of the infrapatellar tendon from the patella with distal displacement of a enthesophyte from the anterior inferior aspect of the patella with increased soft tissue density and stranding in the fat inferior to the patella. The patella is displaced superiorly. The knee is otherwise unremarkable. XR/XR knee RT 4V [id number] IMPRESSION: Presumed infrapatellar tendon avulsion as above.
[2025-05-05 11:38] VITALS: BP 129/79; PULSE 60; RESP 16; TEMP 36.7; O2SAT 98; BMI 27.7
--- NOTE | 2025-05-05 11:42 | XR_ITS ---
WS: [id number] XR ankle LT min 3V* [id number] REASON FOR EXAM: L ankle pain s/p fall, exam unlikely fx FINDINGS: Small bony density which overlies the medial clear space which can be identified and unchanged Previous examination of 2021. There is now a horizontally oriented sliver bone density overlying the medial malleolus on the AP and oblique views. Cannot identify on the lateral. Possibly this represents an avulsed bone fragment however the location is uncertain as it is relation to the acute trauma. Remainder the ankle joint is unremarkable. XR/XR ankle LT min 3V* [id number] IMPRESSION: Superimposed bone density fragment over the medial malleolus uncertain location and clinical significance as above.
--- NOTE | 2025-05-05 12:27 | W.ED.EXTPRO ---
HPI - Extremity Problem General: Chief complaint: Extremity Injury, Lower Stated complaint: Fall, RT Knee Deformity History of Present Illness: Patient presenting with mechanical fall lost balance causing acute deformity on his right knee, initially his patella was markedly elevated chest somewhat receded, unable to bear weight on his right leg, also stating mild pain to the outer part of his left ankle just before the fall but is able to bear weight on that leg, history of left knee surgery in the past by Dr. Oakes of ortho here. 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 mckeon. [facility] [place] History of right knee surgery H/O: vasectomy Hx of tonsillectomy Social History Smoking and tobacco/nicotine status: never used tobacco/nicotine Marital status: Physical Exam Const: COMMON NORMALS: no acute distress, patient oriented x3 and healthy appearing HENMT: COMMON NORMALS: normocephalic and atraumatic HEAD & SCALP: normocephalic and atraumatic Eye: COMMON NORMALS: Equal, round and reactive pupils present and EOMs intact bilaterally PUPIL: Yes Equal, round and reactive pupils present Neck/C-Spine: COMMON NORMALS: full ROM and supple Chest: COMMONS NORMALS: normal inspection of the chest and normal palpation of entire chest wall Resp: COMMON NORMALS: normal respiratory effort, No retractions, No use of accessory muscles and clear to auscultation bilaterally AUSCULTATION: clear to auscultation bilaterally Cardio: COMMON NORMALS: regular rate, regular rhythm and No murmurs present (Cardio) RATE: regular rate RHYTHM: regular rhythm GI: COMMON NORMALS: Normal to inspection, nondistended, normoactive bowel sounds present, Soft to palpation, non-tender and no masses PALPATION: Yes Soft to palpation Extremity: NARRATIVE EXTREMITY EXAM: There are abrasions to the bilateral anterior knees no open fracture, the right knee has patella charla, there is disruption of the infrapatellar tendon to palpation with swelling to the area, there is loss of the extensor mechanism, there is normal distal pulses, there is minimal tenderness to palpation of the left lateral ankle no tenderness palpation of the medial malleolus, normal range of motion of the left ankle Neuro: COMMON NORMALS: patient oriented x3, moves all extremities and no focal motor deficits Psych: COMMON NORMALS: mental status grossly normal, Normal thought process present and cooperative THOUGHT PROCESS: Normal thought process present Skin: COMMON NORMALS: no rashes or lesions noted and no wounds GENERAL SKIN EXAM: no rashes or lesions noted Course Reevaluation(s): Reevaluation #1: Patient reevaluated, x-ray confirming infrapatellar tendon rupture with mild avulsion injury, plan for wound care, update tetanus, pain control, Ortho consult, outpatient follow-up for surgical planning, knee immobilizer, nonweightbearing status, crutches Reevaluation #2: Discussed plan of care with the patient, he prefers to follow-up with Dr. Oakes who has previously operated on his left knee, will arrange for outpatient follow-up with Dr. Oakes. I did discuss with him that he may need to call Dr. Hickman's office if Dr. Oakes does not perform this type of surgery he feels comfortable with this plan of care. Consultations: Consultation #1: Spoke to Dr. Hickman of orthopedic surgery who agrees with above plan of care Vital Signs: Vital signs: Vital Signs Temperature 98.0 F 05/05/25 11:38 Pulse Rate 60 05/05/25 11:38 Respiratory Rate 18 05/05/25 12:39 Blood Pressure 129/79 05/05/25 11:38 Pulse Oximetry 95 05/05/25 12:39 MDM - Extremity (Nontraumatic) Medical Decision Making 40-year-old male presenting to the emergency department with right knee deformity consistent with infrapatellar complete rupture, loss of extensor mechanism, mild abrasions without evidence of open fracture, unknown tetanus status, mild left ankle pain lateral mall without significant concern for fracture with normal range of motion and no swelling, knee x-ray confirming infrapatellar fracture with avulsion injury, knee immobilizer placed, left ankle x-ray with nonspecific abnormality to the medial malleolus however he has no tenderness there and I have no concern for medial malleolar fracture at this time, will treat that supportively, follow-up outpatient Ortho for surgical planning Lab Data Radiology Impressions Knee X-Ray 05/05/25 11:34 IMPRESSION: Presumed infrapatellar tendon avulsion as above. Ankle X-Ray 05/05/25 11:42 IMPRESSION: Superimposed bone density fragment over the medial malleolus uncertain location and clinical significance as above. All radiology interpretation(s) finalized by discharge ED provider radiology interpretation(s): X-ray knee consistent with infrapatellar rupture of the tendon Discharge Plan Discharge Patient Disposition: Home Clinical Impression: Traumatic rupture of right patellar tendon Condition: Stable Prescriptions: New ibuprofen 600 mg tablet 600 mg PO Q6H PRN (Reason: pain) Qty: 30 0RF oxycodone 5 mg capsule 5 mg PO Q6H PRN (Reason: pain) 3 Days Qty: 12 0RF No Action amoxicillin-pot clavulanate 875-125 mg tablet 1 tab PO BID Discharge Orders: Discharge ED (Routine); Ordered 05/05/25 Ordered By: Jake Jerez Referrals: Josie Cunningham DO [Primary Care Provider, Family Practice] Patient Instructions: Opioid Safety, Pain Management, Patient Portal & Judy Instructions, Knee Immobilizer (ED), Tendon Rupture (ED) Print Language: Bermudian Coding Level of Care Code 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
--- OUTSIDE RECORDS SUMMARY | 2025-05-05 12:38 | XMS_ITS | Encounter Summary ---
Author Organization [facility] Address [address] [place] [address] Care Team Providers Care Cutter Brake Lining Name Role Phone Josie Cunningham DO Primary Care Provider [phone] Encounter Details Date Type Department Care Team (Late st Contact Info) Description 04/28/2025 External Device Data [facility] ABSTRACTION Provider, Abstract NO ADDRESS ON FILE Social History Tobacco Use Types Packs/Day Years Used Date Smoking Tobacco: Former Cigarettes Smokeless Tobacco: Current Chew Alcohol Use Standard Drinks/Week Comments Yes 1.7 (1 standard drink = 0.6 oz p ure alcohol) Sex and Gender Information Value Date Recorded Sex Assigned at Not on file 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
--- OUTSIDE RECORDS SUMMARY | 2025-05-05 12:38 | XMS_ITS | Clinical Summary ---
Author Organization [facility] Address [address] [place] [address] Care Team Providers Care Erp Consultant Name Role Phone Josie Cunningham DO Primary Care Provider Allergies Active Allergy Reactions Criticality Noted Date Comments Prednisone Other (See Comments) 02/25/2013 Can't sleep, excessive sweating, anxious Medications multivitamin (DAILY-MARISA) tablet Take 1 Tablet by mouth daily. 12/26/19 20 Active albuterol HFA 90 mcg inhalerIndicatio ns:Acute bronchitis with bronchospasm Take 2 Puffs by inhalation every 6 hours as needed for Shortness of Breath. 8.5 Gram 1 09/23/19 20 Active cholecalciferol, vitamin D3, (VITAMIN D3 ORAL) Take 5,000 Units by mouth daily. Active triamcinolone acetonide (KENALOG) 0.5 % CreamIndications :Eczema, unspecified type,Seborrheic dermatitis Apply to affected area 2 times daily. 30 Gram 2 04/27/20 22 Active famotidine (PEPCID) 20 mg tablet Take 1 Tablet (20 mg) by mouth 2 times daily. 60 Tablet 3 10/22/19 25 Active hydrocortisone acetate (ANUSOL-HC) 25 mg SuppositoryIndic ations:External hemorrhoid Insert 1 Suppository (25 mg) by rectum 2 times daily as needed for Itching or Discomfort. 30 Suppository 3 10/27/19 25 Active predniSONE (DELTASONE) 20 mg tabletIndication s:Moderate acute exacerbation of asthma Take 1 Tablet (20 mg) by mouth daily with breakfast. Take 3 tabs daily x 3 d, then 2 tabs daily x 3 d, then 1 tab daily x 3 d, then 1/2 tab daily x 4 d 5 Tablet 10/27/19 25 Active sildenafiL, pulm.hypertensio n, (REVATIO) 20 mg TabletIndication s:Erectile dysfunction, unspecified erectile dysfunction type take TWO and ONE-HALF TO FIVE TABLETS BY MOUTH ONE hour before sexual activity 30 Tablet 6 01/06/20 25 Active Active Problems Problem Noted Date Diagnosed Date Moderate asthma 02/01/2016 Snoring 03/08/2011 Excessive daytime sleepiness 03/08/[address] scan, chest 03/08/2011 Elevated blood pressure Overview (02/16/2021): Trying to control with weight loss and diet Trying to control with weight loss and diet Resolved Problems Problem Noted Date Diagnosed Date Resolved Date Tonsillar hypertrophy 03/08/20112014 Encounters Date Type Department Care Team Description 04/28/2025 External Device Data [facility] ABSTRACTION Provider, Abstract 04/08/2025 [facility] [place] [facility] [address] [place] [address] Josie Cunningham, DO External hemorrhoid 04/07/2025 External Device Data [facility] ABSTRACTION Provider, Abstract 03/04/2025 External Device Data [facility] ABSTRACTION Provider, Abstract 03/03/2025 External Device Data [facility] ABSTRACTION Provider, Abstract 02/03/2025 External Device Data [facility] ABSTRACTION Provider, Abstract 02/03/2025 [facility] [address] [place] [address] Josie Cunningham, DO Erectile dysfunction, unspecified erectile dysfunction type from Last 3 Months Immunizations Immunization Administration Dates Next Due (ADACEL/BOOSTRIX)(10 YR UP) TDAP VACCINE, 0.5ML, IM 09/26/2013 INFLUENZA VACCINE QUADRIVALENT 3 YR UP PF IM Family History Medical History Relation Name Comments No Known Problems Father Cancer Maternal Grandfather Stomach Cancer, Lung Cancer No Known Problems Mother Cancer Paternal Grandmother Breast Cancer Relation Name Status Comments Father Alive Maternal Grandfather Mother Alive Paternal Grandmother Social History Tobacco Use Types Packs/Day Years Used Date Smoking Tobacco: Former Cigarettes Smokeless Tobacco: Current Chew Tobacco Cessation:Ready to Q uit: Not Asked; Counseling Given: Yes Alcohol Use Standard Drinks/Week Comments Yes 1.7 (1 standard drink = 0.6 oz p ure alcohol) Sex and Gender Information Value Date Recorded Sex Assigned at Not on file 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 Gender Identity Not on file Sexual Orientation Not on file Last Filed Vital Signs Vital Sign Reading Time Taken Comments Blood Pressure 118/70 10/21/2024 10:15 AM PLANT HEALTH MANAGER Pulse 70 10/21/2024 10:15 AM PLANT HEALTH MANAGER Temperature 36.8 C (98.3 F) 10/21/2024 10:15 AM PLANT HEALTH MANAGER Respiratory Rate 18 10/17/2024 9:52 AM PLANT HEALTH MANAGER Oxygen Saturation 97% 10/21/2024 10:15 AM PLANT HEALTH MANAGER Inhaled Oxygen Concentration - - Weight 98.5 kg (217 lb 2 oz) 10/21/2024 10:15 AM PLANT HEALTH MANAGER Height 185.4 cm (6' 1 ) 10/21/2024 10:15 AM PLANT HEALTH MANAGER stated Body Mass Index 28.65 10/21/2024 10:15 AM PLANT HEALTH MANAGER Plan of Treatment Health Maintenance Due Date Last Done Comments Pre-Diabetes and Diabetes Screening 1983 HEPATITIS B VACCINES (1 of 3 - 19+ 3-dose series) 03/21 HPV VACCINES (1 - 3-dose SCDM series) 2010 DTAP/TDAP/TD VACCINES (2 - Td or Tdap) 09/26/2023 Preventative Visit- Commercial 08/20/2024 06/16/2019 INFLUENZA VACCINE (#1) 2025 06/16/2019 Abdominal Aortic Aneurysm (AAA) Screening Completed 03/21/2011 Procedures Procedure Name Priority Date/Time Associated Diagnosis Comments US ABDOMEN COMPLETE Routine 03/21/2011 Splenomegaly from Last 3 Months or Most Recently Relevant to Health Maintenance Results * US ABDOMEN COMPLETE (03/21/2011) Anatomical Region Laterality Modality Abdomen Other Josie Cunningham DO US ORDERABLES Final Resul t from Last 3 Months or Most Recently Relevant to Health Maintenance Insurance [facility] BLUE ACCESS/TRUE BLUE PPO Care Teams Erp Consultant Relationship Specialty Start Date End Date Josie Cunningham DO [address] [place] [id number] PCP - General Family Practice 05/09/10
[2025-05-05 12:39] VITALS: RESP 18; O2SAT 95
[2025-05-05] MEDS: tetanus-diphtheria tox (adult) 0.5 mL SDV IM (12:39)
[2025-05-05] MEDS: oxyCODONE-APAP 5-325 mg Tablet 1 TAB PO (12:39)
--- OUTSIDE RECORDS SUMMARY | 2025-05-05 12:39 | XMS_ITS | Encounter Summary ---
Author Organization [facility] Address [address] [place] [address] Care Team Providers Care Reeling Operator Name Role Phone Josie Cunningham DO Primary Care Provider Encounter Details Date Type Department Care Team (Latest Contact Info) Description 10/18/2000 Outpatient Historical [facility] General and Trauma Surgery-[address] [place] [id number] Hypertrophy of breast (Primary Dx) Social History Tobacco Use Types Packs/Day Years Used Date Smoking Tobacco: Never Assessed Sex and Gender Information Value Date Recorded Sex Assigned at Not on file 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
--- OUTSIDE RECORDS SUMMARY | 2025-05-05 12:39 | XMS_ITS | Clinical Summary ---
Author Organization [facility] Address [address] [place] [address] Care Team Providers Care Head Of Geography Name Role Phone Marisa, Josie L DO Primary Care Provider Allergies Active Allergy Reactions Criticality Noted Date Comments Prednisone Other (See Comments) 02/25/2013 Can't sleep, excessive sweating, anxious Medications ASPIRIN/ACETAMINO PHEN/MACRINA CARB (EXCEDRIN BACK & BODY ORAL) Take by mouth. Acti ve traMADol (ULTRAM) 50 mg tabletIndications :Lymphadenopathy Take 1 Tablet (50 mg) by mouth every 6 hours as needed for Pain Hua's. 60 Tablet 8 Active aspirin (DEVON) 325 mg tablet Take 325 mg by mouth daily. Active albuterol HFA 90 mcg inhalerIndication s:Acute bronchitis with bronchospasm Take 2 Puffs by inhalation every 6 hours as needed for Shortness of Breath. 8.5 Gram 1 0 Active fluticasone propionate (FLONASE) 50 mcg/spray [place], Suspension nasal inhalerIndication s:Subacute pansinusitis Administer 2 Sprays in each nostril daily. 16 Gram 0 Active multivitamin (DAILY-MARISA) tablet Take 1 Tablet by mouth daily. Active Potassium 99 mg Tablet Take 1 Tablet by mouth daily. Active MAGNESIUM ORAL Take 1 Tablet by mouth daily. Active acetaminophen/chl orpheniramine (CORICIDIN ORAL) Take 2 Tablets by mouth daily. Active zinc gluconate 50 mg Tablet Take 50 mg by mouth daily. Active FENUGREEK SEED EXTRACT ORAL Take by mouth. Ac tive OTHER 11 Grams. Pure Collagen Peptides Active acetaminophen (TYLENOL) 500 mg tablet Take 1,000 mg by mouth every 6 hours as needed. Active propranoloL (INDERAL) 10 mg tabletIndications :Palpitations Take 1 Tablet (10 mg) by mouth 3 times daily as needed for Other (See Comment) (palpatations) . 30 Tablet 1 0 Active oxyCODONE (ROXICODONE) 5 mg tablet Take 5 mg by mouth every 6 hours as needed. 0 Active sildenafiL, pulm.hypertension , (REVATIO) 20 mg TabletIndications :Erectile dysfunction, unspecified erectile dysfunction type TAKE 2 1/2-5 TABLETS BY MOUTH 1 HOUR PRIOR TO SEXUAL ACTIVITY. 30 Tablet 11 1 Active celecoxib (CeleBREX) 200 mg capsuleIndication s:Arthralgia, unspecified joint Take 1 Capsule (200 mg) by mouth 2 times daily. 180 Capsule 1 1 Active triamcinolone acetonide (KENALOG) 0.5 % CreamIndications: Eczema, unspecified type Apply to affected area 2 times daily. 15 Gram 1 1 Active Active Problems Problem Noted Date Diagnosed Date Moderate asthma 02/01/2016 Snoring 03/08/2011 Excessive daytime sleepiness 03/08/[address] scan, chest 03/08/2011 Elevated blood pressure Overview (02/15/2021): Trying to control with weight loss and diet Trying to control with weight loss and diet Resolved Problems Problem Noted Date Diagnosed Date Resolved Date Tonsillar hypertrophy 03/08/20112014 Immunizations Immunization Administration Dates Next Due (ADACEL/BOOSTRIX)(10 YR UP) TDAP VACCINE, 0.5ML, IM 09/26/2013 INFLUENZA VACCINE QUADRIVALENT 3 YR UP PF IM Family History Medical History Relation Name Comments Cancer Maternal Grandfather Stomach Cancer, Lung Cancer Cancer Paternal Grandmother Breast Cancer Relation Name Status Comments Father Alive Maternal Grandfather Mother Alive Paternal Grandmother Social History Tobacco Use Types Packs/Day Years Used Date Smoking Tobacco: Never Cigarettes 0.5 5 Smokeless Tobacco: Current Chew Tobacco Cessation:Ready to Q uit: No; Counseling Given: Yes Alcohol Use Standard Drinks/Week Comments Yes 1.7 (1 standard drink = 0.6 oz p ure alcohol) Sex and Gender Information Value Date Recorded Sex Assigned at Not on file Legal Sex Male 3:48 AM MANAGER BRAND Gender Identity Not on file Sexual Orientation Not on file 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 Not on file Not on file Last Filed Vital Signs Vital Sign Reading Time Taken Comments Blood Pressure 120/72 03/22/2020 3:05 PM CDT Pulse 62 03/22/2020 3:05 PM CDT Temperature 36.7 C (98 F) 03/22/2020 3:05 PM CDT Respiratory Rate 18 06/16/2019 2:15 PM CDT Oxygen Saturation 97% 03/22/2020 3:05 PM CDT Inhaled Oxygen Concentration - - Weight 85.3 kg (188 lb) 03/22/2020 3:05 PM CDT Height 182.9 cm (6') 03/22/2020 3:05 PM CDT Body Mass Index 25.5 03/22/2020 3:05 PM CDT Plan of Treatment Health Maintenance Due Date Last Done Comments Pre-Diabetes and Diabetes Screening 1983 HEPATITIS B VACCINES (1 of 3 - 19+ 3-dose series) 03/21 HPV VACCINES (1 - 3-dose SCDM series) 2010 DTAP/TDAP/TD VACCINES (2 - Td or Tdap) 09/26/2023 Preventative Visit- Commercial 08/20/2024 06/16/2019 INFLUENZA VACCINE (#1) 2025 06/16/[address] [facility] Care Teams Head Of Geography Relationship Specialty Start Date End Date Josie Cunningham DO [address] [place] [phone] PCP - General Family Practice 05/09/10
--- OUTSIDE RECORDS SUMMARY | 2025-05-05 12:39 | XMS_ITS | Encounter Summary ---
Author Organization [facility] Address [address] 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
--- OUTSIDE RECORDS SUMMARY | 2025-05-05 12:39 | XMS_ITS | Encounter Summary ---
Author Organization [facility] Address [address] [place] [address] Care Team Providers Care Weir Fisher Name Role Phone Josie Cunningham DO Primary Care Provider Encounter Details Date Type Department Care Team (Latest Contact Info) Description 11/22/2000 Outpatient Historical [facility] General and Trauma Surgery-[address] [place] [phone] Follow-up examination, following unspecified surgery (Primary Dx) Social History Tobacco Use Types Packs/Day Years Used Date Smoking Tobacco: Never Assessed Sex and Gender Information Value Date Recorded Sex Assigned at Not on file 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
--- NOTE | 2025-05-05 12:49 | DCPLANNER ---
Message sent Ortho for follow up
[2025-05-05] MEDS: bacitracin ointment 28 gm 1 APPLIC TOPICAL (13:24)
[2025-05-05 13:30] VITALS: BP 131/90; PULSE 62; O2SAT 97
== END 2025-05-05 13:30 | disposition home or self-care (01) ==
PROVIDERS: Emergency Provider Student in an Organized Health Care Education/Training Program; PCP Family Medicine
DX: S76.111A Strain of right quadriceps muscle, fascia and tendon, initial encounter (principal); W19.XXXA Unspecified fall, initial encounter; M25.572 Pain in left ankle and joints of left foot
CPT/HCPCS: 73564; 73610; 90471; 90714; 99284; J9999

== ENCOUNTER 2025-05-06 14:12 | Outpatient (CLI) | payer OTHER, SELFPAY ==
--- NOTE | 2025-05-06 14:30 | MR_ITS ---
WS: [id number] MRI RIGHT KNEE NONCONTRAST TECHNIQUE: Axial PD, coronal PD fat sat, coronal PD, sagittal PD, and sagittal PD fat-sat images obtained. CLINICAL INFORMATION: right patellar tendon rupture COMPARISON: Radiograph 05/05/2025 FINDINGS: Patella charla with high-grade full-thickness rupture of the patellar tendon. Inferior displacement of the patella enthesophytes better appreciated on the radiographs. Diffuse associated soft tissue edema in the prepatellar and infrapatellar soft tissues with associated fluid and hematoma. Hypertrophic patella. Distal quadriceps tendon is intact. Normal ACL and PCL. Normal medial meniscus. Intrasubstance signal abnormality in the anterior horn lateral meniscus. No acute appearing meniscal tears. Small amount of edema likely contusion in the anteromedial tibial plateau. Lateral collateral ligament appears intact. Biceps femoris appears intact. Normal medial collateral ligament. Normal popliteal fossa.. MR/MR knee RT wo con* [id number] IMPRESSION: 1. High-grade full-thickness rupture of the patella tendon from the inferior a spect of the patella. Patella charla. 2. Inferior displacement of patella enthesophytes better appreciated on the ra diographs. 3. Associated diffuse prepatellar and infrapatellar soft tissue edema and wandy amina with associated fluid. 4. Small amount of contusion involving the anterior medial tibial plateau. 5. Moderate chondromalacia patella. Outbridge grading: grade III: partial-thickness cartilage loss with focal ulcer ation
== END 2025-05-06 14:13 | disposition home or self-care (01) ==
LOC: RAD 14:13
PROVIDERS: PCP Family Medicine; Visit Provider Student in an Organized Health Care Education/Training Program
DX: S80.01XA Contusion of right knee, initial encounter (principal); M22.41 Chondromalacia patellae, right knee; X58.XXXA Exposure to other specified factors, initial encounter
CPT/HCPCS: 73721

== ENCOUNTER 2025-05-11 11:17 | Day surgery (SDC) | payer OTHER, SELFPAY ==
[2025-05-11] VITALS (16 sets, daily range): BP systolic 114–133; BP diastolic 73–89; PULSE 53–97; RESP 11–21; TEMP 36.4–36.9; O2SAT 92–98; BMI 27.7
--- NOTE | 2025-05-11 12:07 | W.PM.OPSUD ---
Surgery/Procedure H&P Update DATE OF PROCEDURE: May 11, 2025 DATE H&P PERFORMED: 05/05/25 H&P UPDATE INFORMATION: I have reviewed H&P completed within last 30 days, I have examined patient prior to procedure and No changes to prior documentation PREOP DIAGNOSIS: Right knee patellar tendon rupture PRIMARY INDICATION FOR PROCEDURE: Right knee patellar tendon rupture PLANNED PROCEDURE: Operation Date: 05/11/25 12:40 Proposed Procedures p Repair Tendon Knee patellar tendon Repair(Right) - Fransisco Oakes DO
[2025-05-11] MEDS: acetaminophen 1,000 MG/100 ML PIGGYBACK 400 MG IV (12:38)
[2025-05-11] MEDS: ceFAZolin 2,000 MG in sodium chloride 0.9% (plus) 50 ML 100 MG IV (12:42)
--- NOTE | 2025-05-11 13:00 | P.ANESASSM_ITS ---
Pre-Anesthetic Assessment Height/Weight: Height 1.85 m Weight 95.254 kg Temp Pulse Resp BP Pulse Ox O2 Del Method 98.5 F 58 L 14 119/88 97 Room Air 05/11/25 12:01 05/11/25 12:01 05/11/25 12:01 05/11/25 12:01 05/11/25 12:01 05/11/25 12:01 Preop Diagnosis: Right knee patellar tendon rupture Operation Date: 05/11/25 12:40 Proposed Procedures p Repair Tendon Knee Quadriceps Tendon Repair(Right) - Fransisco Oakes DO Familial anesthetic complications: none Was Beta Shaheen taken within 24 hours: N/A Was Clonidine taken within 24 hours: N/A Last intake: Intake Last Liquid Date 05/10/25 Last Liquid Time 07:00 Last Solid Date 05/10/25 Last Solid Time 20:00 Social No alcohol and No tobacco Exam alert, oriented x 3, clear to auscultation bilaterally and regular rate & rhythm Airway Cervical ROM: within normal limits Mallampati: Class I Dentition: full History/ROS No significant complaints Pulmonary None reported CV/HEM None reported None reported Hepatic None reported GI None reported Metabolic None reported Musc/skel None reported Neuropsych None reported Anesthetic Plan ASA status: 1 Anesthesia: General Other: Discussed regional nerve block as an option for pain control, will re-assess in PACU. Risk of > 500 ml blood loss (7ml/kg in children): No Medications/Allergies Home Medications ?Medication ?Instructions ?Recorded ?Confirmed ?Last Taken ?Type ibuprofen 600 mg tablet 600 mg PO Q6H PRN pain #30 t abs 05/05/25 05/08/25 05/08/25 Rx oxycodone 5 mg capsule 5 mg PO Q6H 05/08/25 5 05/07/25 History Allergies Allergy/AdvReac Type Severity Reaction Status Date / Time No Known Allergies Allergy Verified 05/05/25 15:21 Current Medications Generic Name Dose Route Start Last Admin Trade Name Freq PRN Reason Stop Dose Admin Sodium Chloride 1,000 mls @ 30 mls/hr 05/11/25 11:45 05/11/25 12:37 Sodium Chloride 0.9% IV 05/12/25 11:44 30 mls/hr .Q24H LIZETH Administration PFSH Anesthesia Medical History 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 [facility] [place] surgery H/O: vasectomy Hx of tonsillectomy Social History Smoking and tobacco/nicotine status: never used tobacco/nicotine Marital status:
--- NOTE | 2025-05-11 14:41 | W.PM.BPON ---
Date of Procedure: [May 11, 2025] Surgeon: [Dr. Oakes DO] [place] Measurer(s): [Mendez Oakes PA-C] Procedure(s) performed: [Right patellar tendon repair] Findings of the procedure(s): [Right patellar tendon rupture. Procedure went well and is planned] Estimated blood loss: [15 mL] Specimen(s) removed: [N/A] Post-operative diagnosis: [Right patellar tendon rupture]
--- NOTE | 2025-05-11 14:44 | PM.PACU ---
PACU note Narrative: Patient is a 40-year-old male that just underwent a right knee patellar tendon repair. Pt transferred to PACU in stable condition. Dressing is dry. pt is awake and alert. pt can wiggle toes and plantarflex and dorsiflex foot. pt able to perform straight leg raise, Femoral nerve intact. Distal pulses are palpable toes are warm and well-perfused. Cap refill is normal and under 2 seconds. Sensation to foot is intact. Pain is controlled. Exam: awake Disposition: discharged
--- NOTE | 2025-05-11 14:46 | P.OP_ITS ---
Operative Report Date of procedure: May 11, 2025 Pre-op diagnosis: Right knee patellar tendon rupture Post-op diagnosis: Same Post-op findings: See operative report narrative Procedure done: Right knee patellar tendon repair Implants: Arthrex 1.7 suture tape x 2 Arthrex 2-0 FiberWire Surgeon: Fransisco Oakes DO Laboratory Technician: Mendez Oakes PA-C: WILBERTO was necessary for assistance in this case with leg positioning retraction and protection of neurovascular structures as well as assistance in patellar tendon repair, wound closure and dressing application and brace application. Anesthesia: General Estimated blood loss: 15 mL 54 min IV fluids: 800 mL Urine output: None Complications: None Findings: See operative report narrative Condition: stable Disposition: same day Brief History: Patient is a 40-year-old male who sustained a right knee patellar tendon rupture was seen in the emergency department placed in knee immobilizer followed up outpatient in the outpatient setting MRI was ordered and confirmed that patient did in fact have a right knee patellar tendon rupture. 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 This point in time we talked about treatment options at this point in time through shared decision making he elects proceed with surgical intervention for right knee patellar tendon repair. Patient understands he is's procedure risk benefits complication alternatives to surgery through shared decision make elects proceed with surgical intervention all questions answered at this time. Here to proceed for surgery today. Procedure: Patient seen evaluate in the preoperative holding area. Consent was reviewed and signed with patient. Correct extremity was then subsequently marked. Patient in the immobilizer brace all in place he was then seen eval by anesthesia once cleared for surgery was taken back to the operative suite. Patient was transported onto the OR table placed in supine position all bony prominences well-padded patient was appropriate secured to the bed. Patient then subsequently underwent anesthesia per the anesthesia department once ap propriate anesthetized nonsterile tourniquet was applied to the right thigh. This point in time the right lower extremity was then prepped and draped in standard orthopedic fashion. Final timeout performed. Patient received appropriate preoperative antibiotics. Esmarch was used to exsanguinate the right lower extremity and tourniquet was insufflated 250 mmHg. A standard midline incision was made. Patient did have a small abrasion on the anterior medial aspect this was out of the zone of incision site. Sharp scalpel incision was made through skin and subcutaneous tissue created full-thickness skin flaps immediately encountered hematoma. This was evacuated. I then subsequently dissected and created full-thickness flaps as well as dissected over the peritenon. At this point in time it was clearly evident patient had a significant patellar tendon rupture which was avulsed off the inferior pole patella. At this point in time I then subsequently utilized thorough irrigation evacuated all hematoma and thoroughly irrigated out the knee joint. I then subsequently utilized sharp scalpel excision to remove all fibrous tissue and to satisfactorily prepped the inferior pole of the patella for repair. This was done with sharp scalpel incision as well as then utilized a rongeur as well as a curette to prep the bony surface. Once this was done I then proceeded with the repair. A small 2 mm drill bit was used and drilled across the tibial tubercle. I then utilized a Hewson suture passer and passed 2 x 1.7 mm Arthrex suture tapes. These were then loaded on 3 needles and then subsequently a running locking stitch was then subsequently made in standard fashion with all 4 limbs starting medial and working lateral. These were ran and then exited out of the core part of the tendon. Proximally the tendon did have a small ossification which was excised and the tendon edges were then prepped for repair. Once this was completed drill bit and drilled 3 bone tunnels from the inferior to superior pole patella I then subsequently utilized a Hewson suture passer and passed the 2 middle sutures through the middle tunnel and then subsequently the medial and lateral through the respective tunnels. I then subsequently held the knee in extension and then subsequently I sequentially tied and repaired both the Arthrex suture tapes which had excellent tendon opposition on the bone. This point time there was satisfactory tension that knee was bent to 30 degrees and no gapping. At this point in time there was retinacular tearing. This completed the tendon aspect of the repair with the bone tunnels. I then subsequently utilized an Arthrex 2-0 FiberWire suture in a running fashion repaired the medial and lateral retinaculum's as well as reinforce the repair and the fascia over top of the patellar tendon. This solidified and backed up the repair. This point time tourniquet deflated hemostasis satisfactory thorough irrigation performed I then subsequently closed this in layered fashion of 0 Vicryl 2-0 Vicryl and then see for the skin. Xeroform placed over this as well as the small abrasion anterior medially and dressed with 4 x 4's ABD Curlex soft roll Carlos wrap and knee immobilizer was applied Patient was waited for anesthesia taken recovery in stable condition. Disposition: Patient taken recovery stable condition patient recovering well maintain knee immobilizer on at this time. Patient will be toe-touch weightbearing. Received appropriate discharge structure as well as pain medication postoperatively. Strict adherence to no range of motion of the knee at this time. Patient will be placed on aspirin for DVT prophylaxis. Patient understand agree with current plan. All questions answered at this time.
[2025-05-11] MEDS: fentaNYL 50 mcg/mL INJ 2mL IVP ×2 (14:48→15:03)
--- NOTE | 2025-05-11 14:51 | XR_ITS ---
WS: [id number] Exam: XR knee RT 3V* [id number] Date/Time of Exam: 05/11/2025 2:51 PM Reason For Exam: OR PICS AP and lateral intraoperative C-arm images of the RIGHT knee are submitted. Images were obtained for intraoperative purposes.
[2025-05-11] MEDS: ondansetron 2 mg/ML SDV 2 mL 4 MG IVP (14:55)
--- NOTE | 2025-05-11 15:25 | ANE.PACU2 ---
Inpatient post-anesthesia follow up: Airway intact: Yes Vital signs: Temperature 97.7 F Pulse Rate 54 Respiratory Rate 16 Blood Pressure 114/76 Pulse Oximetry 97 Oxygen Delivery Me thod Room Air Oxygen Flow Rate Fraction of Inspir ed Oxygen Hydration adequate: Yes Nausea and vomiting: No Pain level: 1 Mental status: Baseline
--- NOTE | 2025-05-11 15:46 | ANES.PROC ---
Anesthesia Procedures Procedure/Date: 05/11/25 Nerve Block ^: Nerve Block 1: Main Anesthesia: general anesthesia Time Out Performed: Yes Consent: requested by attending/covering physician, from patient, from other, risks and benefits reviewed and patient agrees to proceed Laterality: Right Nerve block location: adductor canal (R) Anesthesia monitors applied: pulse oximetry, EKG, BP cuff and oxygen Nerve block position: supine Anesthetic Used: ropivicaine 0.5% (30 ml) and with decadron (4 mg) Ultrasound used to: recognize landmarks and visualize and ID femerol nerve Interscalene/Femoral BLK: 4 stimuplex 21 g needle used for position and inplane approach, visualize local anesthetic spread and no vascular puncture identified Injection: neg aspiration of heme Patient Tolerated Procedure: well Complications: none Additional Comments: Diagnosis: acute post op knee pain
--- NOTE | 2025-05-11 16:23 | SUR.PHASEII ---
15:45 Right leg aductor canal nerve block performed by doctor Samuels using 30ml of 0.5% ropivacaine with decadron 4mg. PT on financial accountant showing sinus bradicardia. Pt tolerated procedure well.
== END 2025-05-11 17:45 | disposition home or self-care (01) ==
PROVIDERS: PCP Family Medicine; Visit Provider Student in an Organized Health Care Education/Training Program
PROC: (CPT 27380; principal; 2025-05-11 12:30)
DX: S76.111A Strain of right quadriceps muscle, fascia and tendon, initial encounter (principal); W18.39XA Other fall on same level, initial encounter; I82.409 Acute embolism and thrombosis of unspecified deep veins of unspecified lower extremity; Z79.891 Long term (current) use of opiate analgesic
CPT/HCPCS: 27380; 73562; 76000; C1713; J0131; J0690; J1100; J1171; J1885; J2250; J2405; J2704; J2795; J3010; J7030

== ENCOUNTER 2025-05-12 21:09 | Emergency (ER) | payer BC, SELFPAY ==
--- OUTSIDE RECORDS SUMMARY | 2025-05-12 21:12 | XMS_ITS | Clinical Summary ---
Author Organization [facility] Address [address] [place] [address] Care Team Providers Care Registered Nurse Cardiovascular Icu Name Role Phone Josie Cunningham DO Primary [...] Device Data STL ABSTRACTION Provider, Abstract 04/08/2025 [facility] Medicine [place] [address] [place] [address] Josie Cunningham, DO External hemorrhoid 04/07/2025 External Device Data STL ABSTRACTION Provider, Abstract 03/04/2025 External Device Data STL ABSTRACTION Provider, Abstract 03/03/2025 External Device Data STL ABSTRACTION Provider, Abstract from Last 3 Months Immunizations Immunization Administration [...] on file Legal Sex Male 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 Gender Identity Not on file Sexual Orientation Not on file Last Filed Vital Signs Vital Sign Reading Time Taken Comments Blood Pressure 118/70 10/21/2024 10:15 AM FILTER TIP INSPECTOR Pulse 70 10/21/2024 10:15 AM FILTER TIP INSPECTOR Temperature 36.8 C (98.3 F) 10/21/2024 10:15 AM FILTER TIP INSPECTOR Respiratory Rate 18 10/17/2024 9:52 AM FILTER TIP INSPECTOR Oxygen Saturation 97% 10/21/2024 10:15 AM FILTER TIP INSPECTOR Inhaled Oxygen Concentration - - Weight 98.5 kg (217 lb 2 oz) 10/21/2024 10:15 AM FILTER TIP INSPECTOR Height 185.4 cm (6' 1 ) 10/21/2024 10:15 AM FILTER TIP INSPECTOR stated Body Mass Index 28.65 10/21/2024 10:15 AM FILTER TIP INSPECTOR Plan of Treatment Health Maintenance Due Date [...] (03/21/2011) Anatomical Region Laterality Modality Abdomen Other us Josie Cunningham DO US ORDERABLES Final Resul t from Last 3 Months or Most Recently Relevant to Health Maintenance Insurance [employer]BS BLUE ACCESS/TRUE BLUE PPO Care Teams Registered Nurse Cardiovascular Icu Relationship Specialty Start Date End Date Josie Cunningham DO [address] [place] [id number] PCP - General Family Practice 05/09/10
--- OUTSIDE RECORDS SUMMARY | 2025-05-12 21:13 | XMS_ITS | Clinical Summary ---
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
--- OUTSIDE RECORDS SUMMARY | 2025-05-12 21:13 | XMS_ITS | Encounter Summary ---
Author Organization [facility] Address [address] [place] [address] Care Team Providers Care Chemical Treatment Plant Technician Name Role Phone Josie Cunningham DO Primary Care Provider Encounter Details Date Type Department Care Team (Latest Contact Info) Description 11/22/2000 Outpatient Historical [facility] General and Trauma Surgery-[address] [place] [phone] Follow-up examination, following unspecified surgery (Primary Dx) Social History Tobacco Use Types Packs/Day Years Used Date Smoking Tobacco: Never Assessed Sex and Gender Information Value Date Recorded Sex Assigned at Not on file 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
--- OUTSIDE RECORDS SUMMARY | 2025-05-12 21:13 | XMS_ITS | Encounter Summary ---
Author Organization 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
--- OUTSIDE RECORDS SUMMARY | 2025-05-12 21:13 | XMS_ITS | Encounter Summary ---
Author Organization [facility] Address [address] 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 [place] [phone] PCP - General Family Practice 05/09/10 documented as of this encounter
[2025-05-12 21:16] VITALS: BP 141/92; PULSE 79; RESP 26; TEMP 36.8; O2SAT 97
[2025-05-12 22:42] VITALS: BP 120/76; PULSE 69; O2SAT 100
[2025-05-12] MEDS: HYDROmorphone 0.5 MG/0.5 ML INJ 1 MG IVP (22:44)
[2025-05-12] MEDS: LORazepam 1 MG/0.5 ML injection IVP (22:45)
--- NOTE | 2025-05-13 00:17 | ED_ITS ---
HPI - Extremity Problem General: Chief complaint: Extremity Problem,Nontraumatic Stated complaint: RT knee post op pain Time Seen by Provider: 05/12/25 21:40 Source: patient Mode of arrival: ambulatory Limitations: no limitations History of Present Illness: Patient is a 40-year-old male who presents to the emergency department complaining of right knee pain. On 05/11, he had patellar tendon repair with Dr. Oakes. States that since he has had 10/10 pain and has been taking [place] at home with no relief. Also has been alternating ibuprofen as well as aspirin which he takes prophylactically for his history of DVT in the left lower extremity. States that the pain in his right knee radiates up and down his leg. He called orthopedic doctor on-call and was told to double his pain meds, but he states this did not help at all. Patient has Carlos wrap and immobilizer in place states that he is supposed to not remove this for 3 days. He does not report any fever, numbness or tingling in his right lower extremity. He states that pain is worse when he tries to maneuver it into different positions, specifically when he is switching positions such as rolling over or standing up. He is screaming in pain at this time. MD Complaint: joint pain Onset (ago): day(s) Pain Consistency: constant Location: right and knee Associated symptoms: Deny chest pain, fever(s) or rash Context: recent surgery/procedure Related Data Previous Rx's ?Medication ?Instructions ?Recorded ibuprofen 600 mg tablet 600 mg PO Q6H PRN pain #30 t abs 05/05/25 aspirin 325 mg tablet 325 mg PO DAILY 14 days #14 tabs 05/11/25 hydrocodone 7.5 mg-acetaminophen 1 tab PO Q6H PRN pain 5 days #20 05/11/25 325 mg tablet tabs ondansetron 4 mg disintegrating 4 mg PO Q8H PRN nausea and 05/11/25 tablet vomiting 3 days #9 tabs Allergies Allergy/AdvReac Type Severity Reaction Status Date / Time No Known Allergies Allergy Verified 05/12/25 21:20 Review of Systems General: Reports: 10 or more systems reviewed and unremarkable except in HPI and below Const: Denies: fever(s) or chills Card: Denies: chest pain Resp: Denies: dyspnea or productive cough GI: Denies: abdominal pain, nausea, vomiting or diarrhea : Denies: flank pain Musc: Reports: joint pain (right knee); Denies: neck pain, back pain, extremity pain, extremity swelling, joint swelling, joint redness, joint warmth or muscle weakness Skin/Breast: Denies: rash Neuro: Denies: headache(s), numbness in extremities or weakness in extremities PFSH ED PFSH: Medical History 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 [place] [facility] [place] of right knee surgery H/O: vasectomy Hx of tonsillectomy Social History Smoking and tobacco/nicotine status: never used tobacco/nicotine Marital status: Physical Exam Const: COMMON NORMALS: patient oriented x3, healthy appearing, alert and well nourished OTHER: Screaming in pain HENMT: COMMON NORMALS: normocephalic and atraumatic HEAD & SCALP: normocephalic and atraumatic Neck/C-Spine: COMMON NORMALS: full ROM, supple and no meningeal signs Resp: COMMON NORMALS: normal respiratory effort, No use of accessory muscles and clear to auscultation bilaterally AUSCULTATION: clear to auscultation bilaterally Cardio: COMMON NORMALS: regular rate and regular rhythm RATE: regular rate RHYTHM: regular rhythm Extremity: COMMON NORMALS: capillary refill normal, no joint enlargement and no clubbing, cyanosis or edema NARRATIVE EXTREMITY EXAM: Knee immobilizer and Carlos bandage in place, underlying bandage over the incision. Evaluation of the soft tissues around the knee does not reveal any warmth or redness. Normal capillary refill, distal pulses are palpable. Distal sensations intact. No tenderness in the calf. Negative Homans' sign. Neuro: COMMON NORMALS: patient oriented x3, moves all extremities, no focal motor deficits and no sensory deficits noted SENSORIUM/ORIENTATION: Yes alert MENINGEAL SIGNS: Yes no meningeal signs Course Vital Signs: Vital signs: Vital Signs Temperature 98.2 F 05/12/25 21:16 Pulse Rate 51 L 05/13/25 01:03 Respiratory Rate 26 H 05/12/25 21:16 Blood Pressure 115/93 05/13/25 01:03 Pulse Oximetry 97 05/13/25 01:03 Oxygen Delivery Me thod Room Air 05/13/25 00:56 MDM - Extremity (Nontraumatic) Medical Decision Making Patient is here 1 day status post repair of right patellar tendon with Dr. Oakes. He presented screaming in agony, reporting 10/10 pain to the right knee with radiation proximally and distally. History of DVT in the left leg. On exam, uncomfortable appearing however neurovascular status to the right lower extremity appears normal, he has good strength distally, no calf tenderness and negative Homans' sign. From what I could visualize of the wound from removing the Carlos bandage but not removing the dressing, there is no concerning surrounding cellulitic or infectious changes that would make me concerned for any postoperative infection. Pain was greatly improved, reduced to a 1/10 with IV Dilaudid, and he is monitored here in the emergency department for prolonged period of time prior to discharge. Minimal suspicion for postoperative DVT and less suspicion for infection, believe that this is postoperative pain and I informed him to follow-up with his orthopedic surgeon in the coming days. He agrees with this plan. No radiology studies performed this visit Discharge Plan Discharge Patient Disposition: Home Clinical Impression: Postoperative pain of right knee Condition: Stable Prescriptions: No Action ibuprofen 600 mg tablet 600 mg PO Q6H PRN (Reason: pain) Qty: 30 0RF aspirin 325 mg tablet 325 mg PO DAILY 14 Days Qty: 14 0RF ondansetron 4 mg tablet,disintegrating 4 mg PO Q8H PRN (Reason: nausea and vomiting) 3 Days Qty: 9 0RF hydrocodone-acetaminophen 7.5-325 mg tablet 1 tab PO Q6H PRN (Reason: pain) 5 Days Qty: 20 0RF Discharge Orders: Discharge ED (Routine); Ordered 05/13/25 Ordered By: Scottie Grimaldo Referrals: Josie Cunningham DO [Primary Care Provider, Family Practice] Patient Instructions: Patient Portal & Judy Instructions Activity Restrictions/Additional Instructions: Postoperative Knee Pain Discharge Discharge Instructions: Postoperative Pain Management Following Patellar Tendon Repair Diagnosis: Postoperative pain, right knee, status post patellar tendon repair (post-op day 2). Pain Control in ED: IV hydromorphone and IV ketorolac. Home Medications: Hydrocodone-acetaminophen 7.5-325 mg tablets. Follow-up: Orthopedic surgery clinic, scheduled for tomorrow. --- 1. Multimodal Analgesia Strategy - Acetaminophen: Strongly recommended as a first-line agent. Dose: 500?1000 mg orally every 6 hours as needed, not to exceed 3,000?4,000 mg/day (adjust for hepatic impairment). - NSAIDs: If not contraindicated (e.g., no history of GI bleeding, renal dysfunction, or cardiovascular disease), consider adding naproxen 500 mg orally twice daily as needed, or ibuprofen 400?600 mg orally every 6 hours as needed. NSAIDs should be taken with food to minimize GI risk. If NSAIDs are used, consider GI prophylaxis (e.g., pantoprazole 40 mg daily) in high-risk patients. - Opioids: Hydrocodone-acetaminophen 7.5-325 mg orally every 4?6 hours as needed for breakthrough pain only, when pain is not controlled by acetaminophen and NSAIDs. Use the lowest effective dose for the shortest duration possible. - Product Design Specialist on opioid risks: sedation, constipation, nausea, respiratory depre ssion, and addiction potential. - Avoid concurrent use of other TURF FARM WORKER depressants (e.g., benzodiazepines, alcohol). 2. Nonpharmacologic Measures - Cryotherapy: Apply ice packs to the knee for 20 minutes every 2?3 hours while awake to reduce pain and swelling. - Elevation: Elevate the affected limb above heart level when possible. - Early Mobilization: Begin gentle [id number] and mobilization as directed by the orthopedic team; avoid weight-bearing or activities not cleared by the surgeon. - Physical Therapy: Follow all instructions provided by the surgical and rehabilitation teams. 3. Monitoring and Safety - Side Effects: Monitor for signs of GI upset, bleeding, renal dysfunction (NSAIDs), or hepatotoxicity (acetaminophen). - Opioid Safety: Store opioids securely. Taper and discontinue as pain improves. Dispose of unused opioids per local pharmacy or take-back program recommendations. - Signs to Seek Immediate Care: Uncontrolled pain, excessive swelling, redness, fever, drainage from incision, shortness of breath, chest pain, or signs of opioid overdose (severe drowsiness, difficulty breathing). 4. Education and Follow-up - Pain Trajectory: Expect pain to decrease over the next several days. Most patients require opioids only for a short period postoperatively. - Medication Tapering: Begin to reduce opioid use as pain improves, transitioning to acetaminophen and/or NSAIDs alone. - Next Steps: Attend scheduled follow-up with orthopedic surgery tomorrow for wound check, suture removal (if applicable), and further pain management guidance. 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
[2025-05-13 00:56] VITALS: BP 115/93; PULSE 52; O2SAT 97
[2025-05-13 01:03] VITALS: BP 115/93; PULSE 51; O2SAT 97
[2025-05-13] MEDS: HYDROmorphone 0.5 MG/0.5 ML INJ IVP (01:12)
== END 2025-05-13 01:24 | disposition home or self-care (01) ==
PROVIDERS: Emergency Provider Physician Assistant; PCP Family Medicine
DX: G89.18 Other acute postprocedural pain (principal); Z79.82 Long term (current) use of aspirin; Z98.890 Other specified postprocedural states
CPT/HCPCS: 96374; 96375; 96376; 99284; J1171; J1885; J2060

== ENCOUNTER 2025-05-15 12:23 | Emergency (ER) | payer OTHER, SELFPAY ==
--- OUTSIDE RECORDS SUMMARY | 2025-05-15 12:28 | XMS_ITS | Encounter Summary ---
Author Organization [facility] Address [address] [place] [address] Care Team Providers Care Garage Attendant Name Role Phone Josie Cunningham DO Primary Care Provider Encounter Details Date Type Department Care Team (Latest Contact Info) Description 11/22/2000 Outpatient Historical [facility] General and Trauma Surgery-[address] [place] [id number] Follow-up examination, following unspecified surgery (Primary Dx) Social History Tobacco Use Types Packs/Day Years Used Date Smoking Tobacco: Never Assessed Sex and Gender Information Value Date Recorded Sex Assigned at Not on file 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
--- OUTSIDE RECORDS SUMMARY | 2025-05-15 12:28 | XMS_ITS | Encounter Summary ---
Author Organization [facility] Address [address] [place] [address] Care Team Providers Care Brick Chimney Supervisor Name Role Phone Josie Cunningham DO Primary Care Provider Encounter Details Date Type Department Care Team (Latest Contact Info) Description 10/18/2000 Outpatient Historical [facility] General and Trauma Surgery-[address] [place] [phone] Hypertrophy of breast (Primary Dx) Social History Tobacco Use Types Packs/Day Years Used Date Smoking Tobacco: Never Assessed Sex and Gender Information Value Date Recorded Sex Assigned at Not on file 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
--- OUTSIDE RECORDS SUMMARY | 2025-05-15 12:28 | XMS_ITS | Encounter Summary ---
Author Organization [facility] Address [address] 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
--- OUTSIDE RECORDS SUMMARY | 2025-05-15 12:28 | XMS_ITS | Clinical Summary ---
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
--- OUTSIDE RECORDS SUMMARY | 2025-05-15 12:28 | XMS_ITS | Clinical Summary ---
Author Organization [facility] Address [address] [place] [address] Care Team Providers Care Precision Lens Grinder Name Role Phone Josie Cunningham DO Primary Care Provider [phone] Allergies Active Allergy Reactions Criticality Noted Date [...] Device Data STL ABSTRACTION Provider, Abstract 04/08/2025 [facility] [place] [address] [place] [address] Josie Cunningham, DO External hemorrhoid 04/07/2025 External [...] on file Legal Sex Male 4:12 PM CAPACITOR TESTER Gender Identity Not on file Sexual Orientation Not on file Last Filed Vital Signs Vital Sign Reading Time Taken Comments Blood Pressure 118/70 10/21/2024 10:15 AM CAPACITOR TESTER Pulse 70 10/21/2024 10:15 AM CAPACITOR TESTER Temperature 36.8 C (98.3 F) 10/21/2024 10:15 AM CAPACITOR TESTER Respiratory Rate 18 10/17/2024 9:52 AM CAPACITOR TESTER Oxygen Saturation 97% 10/21/2024 10:15 AM CAPACITOR TESTER Inhaled Oxygen Concentration - - Weight 98.5 kg (217 lb 2 oz) 10/21/2024 10:15 AM CAPACITOR TESTER Height 185.4 cm (6' 1 ) 10/21/2024 10:15 AM CAPACITOR TESTER stated Body Mass Index 28.65 10/21/2024 10:15 AM CAPACITOR TESTER Plan of Treatment Health Maintenance Due Date [...] BCBS BLUE ACCESS/TRUE BLUE PPO Care Teams Precision Lens Grinder Relationship Specialty Start Date End Date Josie Cunningham DO [address] [place] [phone] PCP - General Family Practice 05/09/10
[2025-05-15 12:35] VITALS: BP 169/77; PULSE 74; RESP 16; O2SAT 97
--- NOTE | 2025-05-15 12:58 | USCV_ITS ---
Geovanny Cochran Age: 40 Gender: M : 1985 Exam Date: 05/15/2025 13:19 Ordering Phys: Keerthi Velazquez MD Technologist: Flaco Mar Exam Location: [facility] [place]_ Indication: right sided calf pain and swelling PROCEDURES: Venous duplex imaging was performed in only the right lower extremity. The following venous structures were evaluated: common femoral vein, profunda vein, proximal portion of the greater saphenous vein, superficial femoral vein, and the popliteal vein. In addition, the posterior tibial and peroneal trunk were evaluated. Serial compression, augmentation maneuvers, and spectral Doppler flow evaluation were performed. FINDINGS: There appears to be thrombus noted in the right peroneal and pt veins. All other veins examined appear to free of thrombus at this time. CONCLUSIONS DVT RIGHT peroneal and posterior tibial veins RLE otherwise patent prelim to Caroline by Assembler Handbags at time of study Pk Landry MD (Electronically Signed) Final Date: 15 May 2025 14:00 S
--- NOTE | 2025-05-15 12:58 | W.ED.EXTPRO ---
HPI - Extremity Problem General: Chief complaint: Extremity Injury, Lower Stated complaint: R leg lower leg pain Time Seen by Provider: 05/15/25 12:57 History of Present Illness: 40-year-old man who had a patellar tendon repair on Sunday. He has been having more pain in his calf on his right leg. He has had some swelling and color change. Concern for DVT. No chest pain. No shortness of breath. He is on aspirin daily. Related Data Previous Rx's ?Medication ?Instructions ?Recorded ibuprofen 600 mg tablet 600 mg PO Q6H PRN pain #30 tabs 05/05/25 aspirin 325 mg tablet 325 mg PO DAILY 14 days #14 tabs 05/11/25 hydrocodone 7.5 mg-acetaminophen 1 tab PO Q6H PRN pain 5 days #20 05/11/25 325 mg tablet tabs hydrocodone 10 mg-acetaminophen 1 tab PO Q4H PRN pain 5 days #30 05/13/25 325 mg tablet tabs methocarbamol 500 mg tablet 500 mg PO TID PRN muscle spasms 7 05/13/25 days #21 tabs ondansetron 4 mg disintegrating 4 mg PO Q8H PRN nausea and 05/13/25 tablet vomiting 7 days #21 tabs apixaban 5 mg (74 tabs) tablets in 5 mg PO BID #74 ea 05/15/25 a dose pack (Eliquis DVT-PE Treat 30D Start) Allergies Allergy/AdvReac Type Severity Reaction Status Date / Time No Known Allergies Allergy Verified 05/13/25 14:24 Review of Systems Narrative: Constitutional symptoms: Negative except as documented in HPI. Skin symptoms: Negative except as documented in HPI. Eye symptoms: Negative except as documented in HPI. ENMT symptoms: Negative except as documented in HPI. Respiratory symptoms: Negative except as documented in HPI. Cardiovascular symptoms: Negative except as documented in HPI. Gastrointestinal symptoms: Negative except as documented in HPI. Genitourinary symptoms: Negative except as documented in HPI. Musculoskeletal symptoms: Negative except as documented in HPI. Neurologic symptoms: Negative except as documented in HPI. Psychiatric symptoms: Negative except as documented in HPI. Endocrine symptoms: Negative except as documented in HPI. 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 [facility] [place] of right knee surgery H/O: vasectomy Hx of tonsillectomy Social History Smoking and tobacco/nicotine status: never used tobacco/nicotine Marital status: Physical Exam Narrative: EXAM NARRATIVE: General: Alert, no acute distress. Skin: warm and dry Head: Normocephalic Neck: Trachea midline Eye: Extraocular movements are intact. Ears, nose, mouth and throat: Oral mucosa moist Respiratory: Respirations are non-labored Musculoskeletal: Normal ROM. There is some swelling and redness of the calf of the right leg Gastrointestinal: Abdomen does not appear distended Neurological: Alert and oriented, No focal neurological deficit observed. Psychiatric: Cooperative, appropriate mood & affect. Course Vital Signs: Vital signs: Vital Signs Pulse Rate 74 05/15/25 12:35 Respiratory Rate 16 05/15/25 12:35 Blood Pressure 169/77 05/15/25 12:35 Pulse Oximetry 97 05/15/25 12:35 Oxygen Delivery Me thod Room Air 05/15/25 12:35 MDM - Extremity (Nontraumatic) Medical Decision Making Medical decision making: Differential diagnosis including but not limited to and based on the above HPI, review of systems and physical exam: DVT versus postsurgical swelling. Orders placed to evaluate differential diagnosis based on the above differential, HPI and physical exam Ultrasound of the right lower extremity: Right peroneal and PT veins show thrombus. This was reviewed and interpreted by myself the emergency room physician. I also reviewed the radiology report. I reviewed the patient's medical record. Reexamination: Patient remained stable. No increased work of breathing. No altered mental status. No focal motor deficits. No chest pain. No hypoxemia. No tachycardia. Consultation: I did notify Dr. Oakes of this and he recommends follow-up with his PCP in the near future. Assessment and plan: DVT ? First dose Eliquis in the emergency room. - Discharged home - Discussed plan with patient. Answered any questions. - Evaluation and treatment of this problem were appropriate in the emergency setting. All radiology interpretation(s) finalized by discharge Discharge Plan Discharge Patient Disposition: Home Clinical Impression: DVT (deep venous thrombosis) Condition: Stable Prescriptions: New Eliquis DVT-PE Treat 30D Start 5 mg (74 tabs) tablets,dose pack 5 mg PO BID Qty: 74 0RF Rx Instructions: 2 tabs (10 mg) BID x 7 days, then 1 tab BID No Action hydrocodone-acetaminophen 10-325 mg tablet 1 tab PO Q4H PRN (Reason: pain) 5 Days Qty: 30 0RF ondansetron 4 mg tablet,disintegrating 4 mg PO Q8H PRN (Reason: nausea and vomiting) 7 Days Qty: 21 0RF methocarbamol 500 mg tablet 500 mg PO TID PRN (Reason: muscle spasms) 7 Days Qty: 21 1RF ibuprofen 600 mg tablet 600 mg PO Q6H PRN (Reason: pain) Qty: 30 0RF aspirin 325 mg tablet 325 mg PO DAILY 14 Days Qty: 14 0RF hydrocodone-acetaminophen 7.5-325 mg tablet 1 tab PO Q6H PRN (Reason: pain) 5 Days Qty: 20 0RF Discharge Orders: Discharge ED (Routine); Ordered 05/15/25 Ordered By: Keerthi Velazquez Referrals: Josie Cunningham DO [Primary Care Provider, Family Practice] Discharge Activity: Limit activity as instructed Patient Instructions: Apixaban (By mouth) (Eliquis), Deep Vein Thrombosis (ED), Opioid Safety, Pain Management, Patient Portal & Judy Instructions Activity Restrictions/Additional Instructions: You need to follow-up with your primary provider in the next 4 to 7 days. Thank you for choosing [facility] for your healthcare needs today. You have been screened and evaluated and felt safe for discharge. Health conditions do change or evolve sometimes and as such it is important that you follow up with your Primary Doctor to be re checked, 3-5 days is a general good time frame for follow up. 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
[2025-05-15 14:20] VITALS: BP 125/72; PULSE 77; O2SAT 98
== END 2025-05-15 14:21 | disposition home or self-care (01) ==
PROVIDERS: Emergency Provider Emergency Medicine; PCP Family Medicine
DX: I82.451 Acute embolism and thrombosis of right peroneal vein (principal); I82.491 Acute embolism and thrombosis of other specified deep vein of right lower extremity; Z79.82 Long term (current) use of aspirin
CPT/HCPCS: 93971; 99284; J9999

== ENCOUNTER 2025-06-11 11:10 | Outpatient (CLI) | payer OTHER, SELFPAY | END 2025-06-11 11:11 | disposition home or self-care (01) | LOC: SPT 11:11 | PROVIDERS: PCP Family Medicine; Visit Provider Physician Assistant | DX: Z47.89 Encounter for other orthopedic aftercare (principal); Z98.890 Other specified postprocedural states | CPT/HCPCS: 97760; L1832 ==

== ENCOUNTER 2025-07-15 11:31 | Outpatient (CLI) | payer OTHER, SELFPAY | END 2025-07-15 11:32 | disposition home or self-care (01) | LOC: SPT 11:33 | PROVIDERS: PCP Family Medicine; Visit Provider Physician Assistant | DX: Z47.89 Encounter for other orthopedic aftercare (principal); Z98.890 Other specified postprocedural states | CPT/HCPCS: 97760; L1812 ==